=== PATIENT | female | born 1985 | race Caucasian/White ===

== ENCOUNTER 2017-12-11 10:36 | Outpatient (CLI) | payer MEDICAID, SELFPAY ==
[2017-12-11 11:51] LABS: Glucose,1 Hr (Glucola) 101 mg/dL (80-140)
== END 2017-12-11 10:56 ==
PROVIDERS: PCP Family Medicine; Visit Provider Obstetrics & Gynecology
DX: Z34.92 Encounter for supervision of normal pregnancy, unspecified, second trimester (principal)
CPT/HCPCS: 36415; 82950

== ENCOUNTER 2017-12-25 12:11 | Outpatient (CLI) | payer MEDICAID, SELFPAY ==
[2017-12-25 12:55] LABS: HCT 30.6 % (36.0-46.0); HGB 10.7 g/dL (12.0-15.5); Mean Corpuscular Hemoglobin 31.6 pg (27.0-33.0); Mean Corpuscular Volume 90.3 fL (80-95); Mean Platelet Volume 9.7 fL (8.0-11.0); Platelet Count 353 x1000/uL (130-400); RBC 3.39 m/cumm (4.00-5.20); RBC Distribution Width 13.2 % (11.7-14.6); White Blood Cell Count 16.26 k/cumm (4.4-10.8)
== END 2017-12-25 12:31 ==
PROVIDERS: PCP Family Medicine; Visit Provider Obstetrics & Gynecology
DX: Z34.82 Encounter for supervision of other normal pregnancy, second trimester (principal); R31.9 Hematuria, unspecified
CPT/HCPCS: 36415; 85027; 87086

== ENCOUNTER 2018-01-06 08:37 | Observation (INO) | payer MEDICAID, SELFPAY ==
[2018-01-06 09:22] LABS: ALT 20 U/L (12-78); AST 18 U/L (15-37); Albumin 2.2 g/dL (3.4-5.0); Alkaline Phosphatase 146 U/L (46-116); Anion Gap 9.7 mmol/L (3-11); BUN 5 mg/dL (7-18); Bilirubin, Total 0.3 mg/dL (0.2-1.0); CO2 22.3 mmol/L (21.0-32.0); CREATININE 0.46 mg/dL (0.55-1.02); Calcium 8.2 mg/dL (8.5-10.1); Chloride 105 mmol/L (98-107); Glucose 91 mg/dL (70-100); Potassium 3.6 mmol/L (3.5-5.1); Sodium 137 mmol/L (136-145); Total Protein 6.2 g/dL (6.4-8.2)
[2018-01-06] MEDS: guaiFENesin 600 MG TABCR PO (10:11)
[2018-01-06 10:26] LABS: Bilirubin Negative (Negative); Blood Negative (Negative); Clarity Clear; Glucose Negative (Negative); Ketones Trace mg/dL (Negative); Leukocyte Esterase Negative (Negative); Nitrite Negative (Negative); Specific Gravity 1.015 (1.005-1.025); Urobilinogen 0.2 EU/dL (Up TO 0.2); pH 7.5 (5-8)
== END 2018-01-06 10:45 | disposition home or self-care (01) ==
PROVIDERS: Admitting Provider Obstetrics & Gynecology Gynecology; PCP Family Medicine; Visit Provider Obstetrics & Gynecology Gynecology
DX: O26.893 Other specified pregnancy related conditions, third trimester (principal); R05 Cough; R11.10 Vomiting, unspecified; Z3A.31 31 weeks gestation of pregnancy
CPT/HCPCS: 36415; 80051; 80053; 81003; G0378

== ENCOUNTER 2018-01-13 17:10 | Emergency (ER) | payer MEDICAID, SELFPAY ==
[2018-01-13 17:18] VITALS: BP 128/75; PULSE 109; RESP 18; TEMP 37.1; O2SAT 98
--- NOTE | 2018-01-13 18:32 | W.ED.GENAD ---
Discharge Plan Disposition Patient Disposition: HOME Condition: Fair Discharge Details Chief Complaint: Nk/Back Pain Clinical Impression: Cough, Acute chest wall pain Primary Care Provider: Marlene Linton V ED Provider: Julienne Chavez Home Meds and New Rx's Prescriptions: New oxycodone 5 mg tablet 5 mg PO Q6H Qty: 7 RF: 0 Continue azithromycin [Zithromax Z-Ish] 250 mg tablet See Label Instructions PO .COMPLEX Qty: 6 RF: 0 cyclobenzaprine 5 mg tablet 5 mg PO TID PRN (Reason: muscle spasm) Qty: 30 RF: 0 PNV [id number] oil [ with DHA-Folic Acid] 1 EACH tablet,chewable 1 ea PO DAILY RF: 0 ranitidine HCl 300 MG tablet 300 mg PO DAILY Qty: 60 RF: 4 albuterol sulfate 90 mcg/actuation HFA aerosol inhaler 1 puff IH Q6H PRN (Reason: shortness of breath or wheezing) Qty: 8 RF: 0 guaifenesin [Mucinex] 1,200 mg tablet extended release 12hr 1,200 mg PO Q12H Qty: 20 RF: 1 No Action lidocaine 5 % adhesive patch,medicated 1 patch Transdermal DAILY Qty: 15 RF: 0 acetaminophen [Tylenol] 325 mg tablet 650 mg PO Q6H PRN (Reason: pain) Qty: 30 RF: 0 Discharge Instructions Instructions: Acute Cough (ED), Chest Wall Pain (ED) Additional Instructions: Encourage hydration. You may continue with Tylenol as needed for pain. Augment Tylenol with oxycodone as prescribed. Please take this medication only as prescribed. You may try splinting as discussed. Sleeping in a more upright position may also help with discomfort and cough. Please follow-up with Dr. Darling tomorrow as discussed. If you develop shortness of breath, difficulty breathing, increased pain or other new/worsening symptoms please seek care urgently once again. Referrals: Leticia Parkinson MD [ [facility] STAFF PHYSICIAN] - Discharge Data Discharge Date/Time-TO BE ENTERED AT DEPARTURE: 01/13/18 20:57 Medical Decision Making Patient 32-year-old female, 32 weeks gestation, chief complaint of cough and rib pain reports she has had cough times 2 weeks. States that initially she was having fevers, chills, congestion and sore throat. Reports that most of the upper respiratory symptoms have improved the cough has persisted. Patient was seen by her ECONOMIC DEVELOPER today who prescribed her azithromycin. While she was in the office, she reports she is having to do about coughing when she felt a pop in the posterior right side of her chest wall. Since that time she has been having severe pain particular with movement and inspiration. Reports the pain subsides and she not moving. States that she has shortness of breath associated cough he was not feeling short of breath and having difficulty breathing. States she has been having some posttussive emesis but otherwise no GI upset. She reports that she began having circumferential chest and abdominal pain a few days ago only with coughing which she thought was likely muscular based. However, his pain was manageable at home. States that her primary concern at this time this is acute onset of pain again, after her pop. Patient appears nontoxic on exam. When she is sitting, she appears quite comfortable. She does appear uncomfortable with movement or coughing. Pulse is 109. Temp is 37.1. Patient was oxygenating at 98%. Lungs are clear in all dixon. Plan obtain chest x-ray, laboratory evaluation. Consulted with Dr. Darling, ECONOMIC DEVELOPER. He reports that the patient appeared much more uncomfortable earlier today when in the office. He was concerned for possible PE. Patient is slightly tachycardic but not hypoxic. Calves are soft and nontender. Her history is most consistent with infection particularly as she began with a congestion right ear pain and sore throat as well as fevers. Seems to be more of a lingering cough that may be inflammatory face. However, given the sudden onset of more severe pain, we will obtain a chest x-ray. Will also obtain baseline labs. Patient was given morphine to help with discomfort and she has failed Flexeril that was prescribed by her OB as well as oral Tylenol. EKG significant for negative precordial T waves. Rate of 99 sinus rhythm. She reviewed by Dr. Marin who advised no acute ischemic changes noted Patient responded quite well to the IV morphine. Feeling much improved although still has severe discomfort with coughing Reviewed by radiologist no acute ab normalities noted Laboratory evaluation significant for elevated white count with elevated neutrophils. Discussed case with Dr. Marin as well as Dr. Darling. Reticular, 3 of us discussed risk associated with pulmonary embolism. Patient does not have any calf pain. Nursing shortness of breath difficulty breathing. She was noted to be tachycardic but this resolved once she is in a more comfortable position. Has not been hypoxic, saturating in the high 90s. No recent travel. Patient is a smoker. Second , patient is fairly low risk. However, unable to rule out pulmonary embolism without CT. Discussed with the patient and her at length. Dr. Darling, Dr. Marin and myself had a lengthy discussion discussing risk/benefits associated with imaging as well as risks associate with pulmonary embolism. Patient voiced understanding, after educated discussion she has decided she does not want to move forward with imaging at this time. Versus he had a azithromycin works. She does live locally and is able to seek care urgently if she develops new or worsening symptoms. Dr. Darling will be a touch the patient tomorrow morning to reassess. Splinting techniques. I did encourage deep breaths to help open up her lungs help prevent further infection. She will continue with azithromycin. Was given oral oxycodone which she responded well to. Patient will be sent home with oxycodone to help with the pain. We discussed with/benefits associated with narcotic use. Advised she keep this in a safe place. She signed narcotic form. She was given very strict return precautions. All of her questions and concerns were addressed, she is in agreement with this plan. HPI General Mode of arrival: ambulatory. Date/Time Provider Initiated Documentation: 01/13/18 17:48. Limitations to Documentation: no limitations. Information obtained by: patient and family. History of Present Illness 32 year old F presents to the emergency department with the chief complaint of right rib pain, cough, described as severe, with intensity rated at 10. Quality is described as stabbing and aching, and is localized to the chest, back and right. Patient reports no radiation. Patient started experiencing this hour(s) (severe right sided pain began with 'pop' a few hours ago) and it has been constant. Immobilization improves symptom(s), Movement worsens symptoms and Other factors that worsen symptoms (cough) . Patient notes no other symptoms., cough and shortness of breath (associates with not wanting to take a deep breath from pain on right side chest wall); denies fever/chills, headaches, nausea/vomiting (states that she can have nausea), rash, syncope and weakness. Patient did receive the following treatments prior to arrival, other (Tylenol, Flexeril) Related Data Home Medications Medication Instructions Recorded Confirmed PNV [id number] oil 1 ea PO DAILY tab.chew 08/29/17 01/13/18 [ with DHA-Folic Acid] ranitidine HCl 300 mg PO DAILY #60 tab-cap 18 01/13/18 albuterol sulfate HFA 90 1 puff IH Q6H PRN #8 gm 01/06/18 01/13/18 mcg/actuation aerosol inhaler guaifenesin ER 1,200 mg tablet, 1,200 mg PO Q12H #20 tab 01/06/18 01/13/18 extended release 12 hr azithromycin 250 mg tablet See Label Instructions PO .COMPLEX 01/13/18 01/13/18 #6 tab cyclobenzaprine 5 mg tablet 5 mg PO TID PRN #30 tab 01/13/18 01/13/18 oxycodone 5 mg PO Q6H #7 tab 01/13/18 acetaminophen [Tylenol] 650 mg PO Q6H PRN #30 tab 01/14/18 lidocaine 5 % topical patch 1 patch TRANSDERMAL DAILY #15 each 01/15/18 Previous Rx's Medication Instructions Recorded ranitidine HCl 300 mg PO DAILY #60 tab-cap 10/31/17 albuterol sulfate HFA 90 1 puff IH Q6H PRN #8 gm 01/06/18 mcg/actuation aerosol inhaler guaifenesin ER 1,200 mg tablet, 1,200 mg PO Q12H #20 tab 01/06/18 extended release 12 hr azithromycin 250 mg tablet See Label Instructions PO .COMPLEX 01/13/18 #6 tab cyclobenzaprine 5 mg tablet 5 mg PO TID PRN #30 tab 01/13/18 oxycodone 5 mg PO Q6H #7 tab 01/13/18 acetaminophen [Tylenol] 650 mg PO Q6H PRN #30 tab 01/14/18 lidocaine 5 % topical patch 1 patch TRANSDERMAL DAILY #15 each 01/15/18 Allergies Allergy/AdvReac Type Severity Reaction Status Date / Time No Known Drug Allergies Allergy Unverified 01/13/18 17:24 General Stated Complaint: Nk/Back Pain JETT: 3 Review of Systems Constitutional Denies chills, Reports fatigue, Denies fever(s), Denies headache(s) and Denies malaise ENT Denies dizziness and Denies headache(s) Cardiovascular Reports chest pain (right posterior chest wall pain with deep inspiration and coughing), Denies chest pain at rest, Denies syncope, Denies palpitations and Reports dyspnea Respiratory Reports chest congestion, Reports cough, Denies hemoptysis, Reports dyspnea, Denies stridor and Denies wheezing Gastrointestinal Denies abdominal pain, Denies nausea and Denies vomiting Genitourinary Reports as per HPI, Reports amenorrhea (patient is currently ) and Denies pelvic pain Musculoskeletal Reports as per HPI, Reports back pain (right side of chest wall ) and Denies numbness Integumentary/Breasts Denies rash and Denies skin pain Neurologic Denies dizziness, Denies syncope, Denies headache(s), Denies focal weakness and Denies numbness Endocrine Reports fatigue and Denies palpitations Allergic/Immunologic Denies wheezing Exam Const General: cooperative, healthy appearing, uncomfortable (patient is sitting very still, leaning toward the left. Holds the right side of her back with inspiration), no acute distress, well developed and well groomed Nutritional Appearance: average body habitus and well nourished Orientation: alert and awake [facility] Head: normal to inspection and normocephalic Ears: hearing grossly normal bilaterally, external ears normal and TM's normal bilaterally General nose exam: external nose normal and nares normal Mouth: oral mucosae normal, lip normal, tongue normal, oropharynx normal and moist mucous membranes Teeth and gingiva: dentition normal Throat: posterior oropharynx normal, tonsils normal and uvula midline Eyes General: appearance normal, both eyes and all related structures Neck Neck: normal visual inspection, no lymphadenopathy, no meningeal signs and trachea midline Chest Chest: abnormal inspection of the chest (no visible abnormalities, no palpable step off or crepitus. Patient is very point tender over the lateral posterior side of the right chest wall with focal tenderness elicited), no crepitus, localized rib tenderness with anteroposterior compression, no masses, tenderness and No rash Resp Effort & Inspection: normal respiratory effort, able to speak in complete sentences and cough Quality of cough: dry (appears very uncomfortable with cough) Auscultation: clear to auscultation bilaterally, no rales, no rhonchi and no wheezes Cardio Rate: regular rate Rhythm: regular rhythm Heart Sounds: S1 normal and S2 normal GI Inspection: normal to inspection (abdomenal exam consistent with gestational age) Palpation: no guarding, not rigid and nontender Back/Spine/Pelvis Back: No erythema, No warmth, No ecchymosis and back tenderness (as above) Cervical Spine: No cervical spinal tenderness Thoracic/Lumbar Spine: No paraspinal tenderness, No thoracic spinal tenderness and No lumbar spinal tenderness Skin General skin exam: no rashes or lesions noted Lesions: no lesions Rashes: no rashes Neuro General: alert and awake Cognition: normal cognition Speech: speech normal Gait: normal gait Extrem General: no pedal edema, no calf tenderness and normal gait Psych Appearance: grossly normal and well kempt Mental Status: mental status grossly normal Speech and Movement: speech and movement normal Course Vital Signs Temperature 37.1 C 01/13/18 17:18 Pulse 109 H 01/13/18 17:18 Respiratory Rate 18 01/13/18 17:18 Blood Pressure 128/75 01/13/18 17:18 Pulse Oximetry 98 01/13/18 17:18 Temperature 37.1 C 01/13/18 17:18 Temperature Source Skin 01/13/18 17:18 Pulse 109 H 01/13/18 17:18 Respiratory Rate 18 01/13/18 17:18 Respiratory Effort 01/13/18 17:25 Blood Pressure 128/75 01/13/18 17:18 Blood Pressure Position Sitting 01/13/18 17:18 Pulse Oximetry 98 01/13/18 17:18 Oxygen Delivery Method Room Air 01/13/18 17:18 Oxygen Flow Rate 0 01/13/18 17:18 Pain Level 10 01/13/18 17:18 Comment 01/13/18 17:18
--- NOTE | 2018-01-13 18:36 | DI.RAD_ITS ---
SYMPTOMS/DIAGNOSIS: COUGH X 2 WKS WITH POP AND PAIN RT SIDE PA AND LATERAL CHEST: Comparison 01/26/10. There is poor inspiration. The heart size and pulmonary vasculature are within normal limits. The lungs are free of infiltrates, effusions or pneumothoraces. The bones appear intact. IMPRESSION: No acute pulmonary process.
[2018-01-13] MEDS: MORPHine 10 MG/ML VIAL 2 MG IVP (18:42)
[2018-01-13 18:47] LABS: Abs Immature Grans 0.26 k/cumm (0.0-0.09); Absolute Basophil Count 0.06 k/cumm (0.0-0.2); Absolute Lymphocyte Count 1.87 k/cumm (1.2-3.4); Absolute Monocyte Count 1.36 k/cumm (0.11-0.7); Absolute Neutrophil Count 15.11 k/cumm (1.2-6.7); Basophils % 0.3; HGB 10.5 g/dL (12.0-15.5); Immature Grans % 1.4; Mean Corp. HGB Concentration 33.9 g/dL (32.0-36.0); Mean Corpuscular Hemoglobin 30.4 pg (27.0-33.0); Mean Corpuscular Volume 89.9 fL (80-95); Monocytes % 7.3; Platelet Count 485 x1000/uL (130-400); RBC 3.45 m/cumm (4.00-5.20); White Blood Cell Count 18.66 k/cumm (4.4-10.8)
[2018-01-13 19:01] LABS: ALT 20 U/L (12-78); AST 17 U/L (15-37); Albumin 2.1 g/dL (3.4-5.0); Alkaline Phosphatase 182 U/L (46-116); Anion Gap 9.5 mmol/L (3-11); BUN 7 mg/dL (7-18); Bilirubin, Total 0.3 mg/dL (0.2-1.0); CO2 23.5 mmol/L (21.0-32.0); Chloride 103 mmol/L (98-107); Glucose 106 mg/dL (70-100); Potassium 3.4 mmol/L (3.5-5.1); Sodium 136 mmol/L (136-145); Total Protein 6.5 g/dL (6.4-8.2)
--- NOTE | 2018-01-13 19:08 | ED.GENADUL_ITS ---
Discharge Plan Disposition Patient Disposition: HOME Condition: Fair Discharge Details Chief Complaint: Nk/Back Pain Clinical Impression: Cough, Acute chest wall pain Primary Care Provider: Marlene Linton V ED Provider: Julienne Chavez Home Meds and New Rx's Prescriptions: New oxycodone 5 mg tablet 5 mg PO Q6H Qty: 7 RF: 0 Continue azithromycin [Zithromax Z-Ish] 250 mg tablet See Label Instructions PO .COMPLEX Qty: 6 RF: 0 cyclobenzaprine 5 mg tablet 5 mg PO TID PRN (Reason: muscle spasm) Qty: 30 RF: 0 PNV [id number] oil [ with DHA-Folic Acid] 1 EACH tablet, chewable 1 ea PO DAILY RF: 0 ranitidine HCl 300 MG tablet 300 mg PO DAILY Qty: 60 RF: 4 albuterol sulfate 90 mcg/actuation HFA aerosol inhaler 1 puff IH Q6H PRN (Reason: shortness of breath or wheezing) Qty: 8 RF: 0 guaifenesin [Mucinex] 1,200 mg tablet extended release 12hr 1,200 mg PO Q12H Qty: 20 RF: 1 No Action lidocaine 5 % adhesive patch,medicated 1 patch Transdermal DAILY Qty: 15 RF: 0 acetaminophen [Tylenol] 325 mg tablet 650 mg PO Q6H PRN (Reason: pain) Qty: 30 RF: 0 Discharge Instructions Instructions: Acute Cough (ED), Chest Wall Pain (ED) Additional Instructions: Encourage hydration. You may continue with Tylenol as needed for pain. Augment Tylenol with oxycodone as prescribed. Please take this medication only as prescribed. You may try splinting as discussed. Sleeping in a more upright position may also help with discomfort and cough. Please follow-up with Dr. Darling tomorrow as discussed. If you develop shortness of breath, difficulty breathing, increased pain or other new/worsening symptoms please seek care urgently once again. Referrals: Leticia Parkinson MD [ [facility] STAFF PHYSICIAN] - Discharge Data Discharge Date/Time-TO BE ENTERED AT DEPARTURE: 01/13/18 20:57 Medical Decision Making Patient 32-year-old female, 32 weeks gestation, chief complaint of cough and rib pain reports she has had cough times 2 weeks. States that initially she was having fevers, chills, congestion and sore throat. Reports that most of the upper respiratory symptoms have improved the cough has persisted. Patient was seen by her SECOND TIME WORKER today who prescribed her azithromycin. While she was in the office, she reports she is having to do about coughing when she felt a pop in the posterior right side of her chest wall. Since that time she has been having severe pain particular with movement and inspiration. Reports the pain subsides and she not moving. States that she has shortness of breath associated cough he was not feeling short of breath and having difficulty breathing. States she has been having some posttussive emesis but otherwise no GI upset. She reports that she began having circumferential chest and abdominal pain a few days ago only with coughing which she thought was likely muscular based. However, his pain was manageable at home. States that her primary concern at this time this is acute onset of pain again, after her pop . Patient appears nontoxic on exam. When she is sitting, she appears quite comfortable. She does appear uncomfortable with movement or coughing. Pulse is 109. Temp is 37.1. Patient was oxygenating at 98%. Lungs are clear in all dixon. Plan obtain chest x-ray, laboratory evaluation. Consulted with Dr. Darling, SECOND TIME WORKER. He reports that the patient appeared much more uncomfortable earlier today when in the office. He was concerned for possible PE. Patient is slightly tachycardic but not hypoxic. Calves are soft and nontender. Her history is most consistent with infection particularly as she began with a congestion right ear pain and sore throat as well as fevers. Seems to be more of a lingering cough that may be inflammatory face. However, given the sudden onset of more severe pain, we will obtain a chest x-ray. Will also obtain baseline labs. Patient was given morphine to help with discomfort and she has failed Flexeril that was prescribed by her OB as well as oral Tylenol. EKG significant for negative precordial T waves. Rate of 99 sinus rhythm. She reviewed by Dr. Marin who advised no acute ischemic changes noted Patient responded quite well to the IV morphine. Feeling much improved although still has severe discomfort with coughing Reviewed by radiologist no acute ab normalities noted Laboratory evaluation significant for elevated white count with elevated neutrophils. Discussed case with Dr. Marin as well as Dr. Darling. Reticular, 3 of us discussed risk associated with pulmonary embolism. Patient does not have any calf pain. Nursing shortness of breath difficulty breathing. She was noted to be tachycardic but this resolved once she is in a more comfortable position. Has not been hypoxic, saturating in the high 90s. No recent travel. Patient is a smoker. Second , patient is fairly low risk. However, unable to rule out pulmonary embolism without CT. Discussed with the patient and her at length. Dr. Darling, Dr. Marin and myself had a lengthy discussion discussing risk/benefits associated with imaging as well as risks associate with pulmonary embolism. Patient voiced understanding, after educated discussion she has decided she does not want to move forward with imaging at this time. Versus he had a azithromycin works. She does live locally and is able to seek care urgently if she develops new or worsening symptoms. Dr. Darling will be a touch the patient tomorrow morning to reassess. Splinting techniques. I did encourage deep breaths to help open up her lungs help prevent further infection. She will continue with azithromycin. Was given oral oxycodone which she responded well to. Patient will be sent home with oxycodone to help with the pain. We discussed with/benefits associated with narcotic use. Advised she keep this in a safe place. She signed narcotic form. She was given very strict return precautions. All of her questions and concerns were addressed, she is in agreement with this plan. HPI General Mode of arrival: ambulatory . Date/Time Provider Initiated Documentation: 01/13/18 17:48 . Limitations to Documentation: no limitations . Information obtained by: patient and family . History of Present Illness 32 year old F presents to the emergency department with the chief complaint of right rib pain, cough, described as severe, with intensity rated at 10. Quality is described as stabbing and aching, and is localized to the chest, back and right. Patient reports no radiation. Patient started experiencing this hour(s) (severe right sided pain began with 'pop' a few hours ago) and it has been constant. Immobilization improves symptom(s), Movement worsens symptoms and Other factors that worsen symptoms (cough) . Patient notes no other symptoms., cough and shortness of breath (associates with not wanting to take a deep breath from pain on right side chest wall); denies fever/chills, headaches, nausea/vomiting (states that she can have nausea), rash, syncope and weakness. Patient did receive the following treatments prior to arrival, other (Tylenol, Flexeril) Related Data Home Medications Medication Instructions Recorded Confirmed PNV [id number] oil 1 ea PO DAILY tab.chew 08/29/17 01/13/18 [ with DHA-Folic Acid] ranitidine HCl 300 mg PO DAILY #60 tab-cap 18 01/13/18 albuterol sulfate HFA 90 1 puff IH Q6H PRN #8 gm 01/06/18 01/13/18 mcg/actuation aerosol inhaler guaifenesin ER 1,200 mg tablet, 1,200 mg PO Q12H #20 tab 01/06/18 01/13/18 extended release 12 hr azithromycin 250 mg tablet See Label Instructions PO .COMPLEX 01/13/18 01/13/18 #6 tab cyclobenzaprine 5 mg tablet 5 mg PO TID PRN #30 tab 01/13/18 01/13/18 oxycodone 5 mg PO Q6H #7 tab 01/13/18 acetaminophen [Tylenol] 650 mg PO Q6H PRN #30 tab 01/14/18 lidocaine 5 % topical patch 1 patch TRANSDERMAL DAILY #15 each 01/15/18 Previous Rx's Medication Instructions Recorded ranitidine HCl 300 mg PO DAILY #60 tab-cap 10/31/17 albuterol sulfate HFA 90 1 puff IH Q6H PRN #8 gm 01/06/18 mcg/actuation aerosol inhaler guaifenesin ER 1,200 mg tablet, 1,200 mg PO Q12H #20 tab 01/06/18 extended release 12 hr azithromycin 250 mg tablet See Label Instructions PO .COMPLEX 01/13/18 #6 tab cyclobenzaprine 5 mg tablet 5 mg PO TID PRN #30 tab 01/13/18 oxycodone 5 mg PO Q6H #7 tab 01/13/18 acetaminophen [Tylenol] 650 mg PO Q6H PRN #30 tab 01/14/18 lidocaine 5 % topical patch 1 patch TRANSDERMAL DAILY #15 each 01/15/18 Allergies Allergy/AdvReac Type Severity Reaction Status Date / Time No Known Drug Allergies Allergy Unverified 01/13/18 17:24 General Stated Complaint: Nk/Back Pain JETT: 3 Review of Systems Constitutional Denies chills, Reports fatigue, Denies fever(s), Denies headache(s) and Denies malaise ENT Denies dizziness and Denies headache(s) Cardiovascular Reports chest pain (right posterior chest wall pain with deep inspiration and coughing), Denies chest pain at rest, Denies syncope, Denies palpitations and Reports dyspnea Respiratory Reports chest congestion, Reports cough, Denies hemoptysis, Reports dyspnea, Denies stridor and Denies wheezing Gastrointestinal Denies abdominal pain, Denies nausea and Denies vomiting Genitourinary Reports as per HPI, Reports amenorrhea (patient is currently ) and Denies pelvic pain Musculoskeletal Reports as per HPI, Reports back pain (right side of chest wall ) and Denies numbness Integumentary/Breasts Denies rash and Denies skin pain Neurologic Denies dizziness, Denies syncope, Denies headache(s), Denies focal weakness and Denies numbness Endocrine Reports fatigue and Denies palpitations Allergic/Immunologic Denies wheezing Exam Const General: cooperative, healthy appearing, uncomfortable (patient is sitting very still, leaning toward the left. Holds the right side of her back with inspiration), no acute distress, well developed and well groomed Nutritional Appearance: average body habitus and well nourished Orientation: alert and awake [facility] Head: normal to inspection and normocephalic Ears: hearing grossly normal bilaterally, external ears normal and TM's normal bilaterally General nose exam: external nose normal and nares normal Mouth: oral mucosae normal, lip normal, tongue normal, oropharynx normal and moist mucous membranes Teeth and gingiva: dentition normal Throat: posterior oropharynx normal, tonsils normal and uvula midline Eyes General: appearance normal, both eyes and all related structures Neck Neck: normal visual inspection, no lymphadenopathy, no meningeal signs and trachea midline Chest Chest: abnormal inspection of the chest (no visible abnormalities, no palpable step off or crepitus. Patient is very point tender over the lateral posterior side of the right chest wall with focal tenderness elicited), no crepitus, localized rib tenderness with anteroposterior compression, no masses, tenderness and No rash Resp Effort & Inspection: normal respiratory effort, able to speak in complete sentences and cough Quality of cough: dry (appears very uncomfortable with cough ) Auscultation: clear to auscultation bilaterally, no rales, no rhonchi and no wheezes Cardio Rate: regular rate Rhythm: regular rhythm Heart Sounds: S1 normal and S2 normal GI Inspection: normal to inspection (abdomenal exam consistent with gestational age ) Palpation: no guarding, not rigid and nontender Back/Spine/Pelvis Back: No erythema, No warmth, No ecchymosis and back tenderness (as above) Cervical Spine: No cervical spinal tenderness Thoracic/Lumbar Spine: No paraspinal tenderness, No thoracic spinal tenderness and No lumbar spinal tenderness Skin General skin exam: no rashes or lesions noted Lesions: no lesions Rashes: no rashes Neuro General: alert and awake Cognition: normal cognition Speech: speech normal Gait: normal gait Extrem General: no pedal edema, no calf tenderness and normal gait Psych Appearance: grossly normal and well kempt Mental Status: mental status grossly normal Speech and Movement: speech and movement normal Course Vital Signs Temperature 37.1 C 01/13/18 17:18 Pulse 109 H 01/13/18 17:18 Respiratory Rate 18 01/13/18 17:18 Blood Pressure 128/75 01/13/18 17:18 Pulse Oximetry 98 01/13/18 17:18 Temperature 37.1 C 01/13/18 17:18 Temperature Source Skin 01/13/18 17:18 Pulse 109 H 01/13/18 17:18 Respiratory Rate 18 01/13/18 17:18 Respiratory Effort 01/13/18 17:25 Blood Pressure 128/75 01/13/18 17:18 Blood Pressure Position Sitting 01/13/18 17:18 Pulse Oximetry 98 01/13/18 17:18 Oxygen Delivery Method Room Air 01/13/18 17:18 Oxygen Flow Rate 0 01/13/18 17:18 Pain Level 10 01/13/18 17:18 Comment 01/13/18 17:18
[2018-01-13 20:02] VITALS: BP 118/64; PULSE 96; RESP 18; TEMP 37; O2SAT 97
[2018-01-13] MEDS: oxyCODONE 5 MG TAB PO (20:02)
--- NOTE | 2018-01-13 20:03 | W.OBCONSULT ---
Date of service: 01/13/18 Assessment and Plan (1) Upper respiratory infection: Current visit: No Status: Acute (2) : Current visit: No Status: Acute Upper respiratory infection with musculoskeletal pain related to cough. She does have a significant leukocytosis. CXR/EKG were normal. I discussed other clinical considerations such as PE with the patient. The clinical suspicion is low but should her symptoms worsen I would consider CTA of the chest. The patient is agreeable to this. I would recommend discharging the patient with a short course of oxycodone which she is advised to utilize judiciously. I will plan to follow up with her in the morning. She is advised to return promptly for worsening symptoms. History of Present Illness Narrative: 32 year old presents to the emergency department with cough x 2 weeks with musculoskeletal pain involving her ribs, abdomen and back. The patient reports a productive cough for the last two weeks and I did see her in the clinic earlier today and started her on azithromycin. Her pain intensified following her clinic visit to the point that it was debilitating. I advised her to present to the emergency department for evaluation. Review of Systems Review of Systems All systems reviewed & are unremarkable except as noted in HPI and below Respiratory Reports as per HPI Musculoskeletal Reports as per HPI Exam Const General: cooperative, healthy appearing and well developed Resp Auscultation: clear to auscultation bilaterally Cardio Rate: regular rate Rhythm: regular rhythm Back/Spine/Pelvis Other: Tenderness to palpation along her lower ribs bilaterally extending to her back. Results Labs : 01/13/18 18:04 01/13/18 18:04 Laboratory Results - last 24 hr 01/13/18 01/13/18 18:04 18:04 WBC 18.66 H RBC 3.45 L Hgb 10.5 L Hct 31.0 L MCV 89.9 MCH 30.4 MCHC 33.9 RDW 13.0 Plt Count 485 H MPV 9.0 Immature Gran % 1.4 Neutrophils % 81.0 Lymphocytes % 10.0 Monocytes % 7.3 Eosinophils % 0.0 Basophils % 0.3 Absolute Neutrophils 15.11 H Absolute Lymphocytes 1.87 Absolute Monocytes 1.36 H Absolute Eosinophils 0.00 Absolute Basophils 0.06 Sodium 136 Potassium 3.4 L Chloride 103 Carbon Dioxide 23.5 Anion Gap 9.5 BUN 7 Creatinine 0.60 Estimated GFR/1.73 m2 >= 60.00 Glucose 106 H Calcium 9.0 Total Bilirubin 0.3 AST 17 ALT 20 Alkaline Phosphatase 182 H Total Protein 6.5 Albumin 2.1 L
--- NOTE | 2018-01-13 20:05 | DI.VRAD_ITS ---
EXAM: XR Chest, 2 Views EXAM DATE/TIME: 01/13/2018 6:37 PM CLINICAL HISTORY: 32 years old, female; Signs and symptoms; Cough; Patient HX: X2 weeks with pop and pain on right side; Additional info: PT is 32 weeks TECHNIQUE: XR of the chest, 2 views. COMPARISON: No relevant prior studies available. FINDINGS: Lungs: Unremarkable. No consolidation. Pleural space: Unremarkable. No pleural effusion. No pneumothorax. Heart/Mediastinum: Unremarkable. No cardiomegaly. Bones/joints: Unremarkable for patient's age. IMPRESSION: No acute findings. Dictated and Authenticated by: Bernabe Styles MD. Ordering:VIVIANE MALONE MD
[2018-01-13] MEDS: oxyCODONE 5 MG TAB 15 MG PO (20:56)
[2018-01-13 20:57] VITALS: BP 118/64; PULSE 96; RESP 18; TEMP 37; O2SAT 97
== END 2018-01-13 20:57 | disposition home or self-care (01) ==
PROVIDERS: Emergency Provider Physician Assistant; PCP Family Medicine
DX: O99.513 Diseases of the respiratory system complicating pregnancy, third trimester (principal); J06.9 Acute upper respiratory infection, unspecified; Z3A.32 32 weeks gestation of pregnancy; R07.81 Pleurodynia; O99.333 Smoking (tobacco) complicating pregnancy, third trimester; F17.210 Nicotine dependence, cigarettes, uncomplicated
CPT/HCPCS: 36415; 80053; 93005; 96374; 99253; 99285; 71046; 85025; 93010; J2270

== ENCOUNTER 2018-01-14 16:43 | Emergency (ER) | payer MEDICAID, SELFPAY ==
[2018-01-14 16:25] VITALS: BP 107/89; PULSE 117; RESP 22; TEMP 36.9; O2SAT 98
--- NOTE | 2018-01-14 16:36 | DI.RAD_ITS ---
SYMPTOMS/DIAGNOSIS: CHEST PAIN CHEST X-RAY, FRONTAL AND LATERAL VIEWS: Comparison is 01/13/18. The heart size and pulmonary vasculature are stable and within normal limits. No consolidating infiltrates are seen. There is a question of increased lung markings in the right base. A developing pneumonia cannot be excluded. No effusions or pneumothoraces are identified. The bones are intact. IMPRESSION: Question of a developing right lower lobe infiltrate. Followup as clinically appropriate.
--- NOTE | 2018-01-14 16:38 | W.ED.GENAD ---
Discharge Plan Disposition Patient Disposition: HOME Discharge Details Chief Complaint: Nk/Back Pain Clinical Impression: Pneumonia, Closed rib fracture Reason For Visit: MAHAMED Primary Care Provider: Marlene Linton V ED Provider: Mj Lorenzana Home Meds and New Rx's Prescriptions: New acetaminophen [Tylenol] 325 mg tablet 650 mg PO Q6H PRN (Reason: pain) Qty: 30 RF: 0 Continue cyclobenzaprine 5 mg tablet 5 mg PO TID PRN (Reason: muscle spasm) Qty: 30 RF: 0 PNV [id number]-[id number]-3-fish oil [ with DHA-Folic Acid] 1 EACH tablet,chewable 1 ea PO DAILY RF: 0 ranitidine HCl 300 MG tablet 300 mg PO DAILY Qty: 60 RF: 4 albuterol sulfate 90 mcg/actuation HFA aerosol inhaler 1 puff IH Q6H PRN (Reason: shortness of breath or wheezing) Qty: 8 RF: 0 No Action lidocaine 5 % adhesive patch,medicated 1 patch Transdermal DAILY Qty: 15 RF: 0 Discharge Instructions Instructions: Rib Fracture (ED), Pneumonia (ED) Additional Instructions: Please take antibiotic as prescribed. Use Tylenol and lidocaine patch as prescribed. Please follow-up with your rough rounder tomorrow. Return to the ER if you have any worsening or new concerning symptoms. Referrals: Leticia Parkinson MD [ [facility] STAFF PHYSICIAN] - Discharge Data Discharge Date/Time-TO BE ENTERED AT DEPARTURE: 01/14/18 19:10 Medical Decision Making 16:45 --32-year-old at 32 weeks, here with right posterior lateral rib pain that is severe, spasmodic and pleuritic after coughing spell yesterday when she experienced a popping sensation. Patient is uncomfortable appearing. She is tachycardic secondary to discomfort. Tender to palpation along her lateral right rib. I suspect she has a rib fracture She did have a chest x-ray yesterday that was negative but limited. Will repeat cxr to assess for pneumothorax. Plan is to treat her pain with lidocaine patch as well as Tylenol. 18:45 --chest x-ray interpreted by radiology few scattered small opacities in right lower lobe which may represent developing infiltrates. no ptx. Patient reassessed and notes significant improvement with lidocaine patch and Tylenol. Requesting discharge. Patient informed of x-ray results. Patient was encouraged to call her rough rounder tomorrow in follow-up. I advised her to return immediately should she have any worsening or new concerning symptoms. Spoke with OB electrical subcontractor Dr. Aponte - patient to be seen in follow-up. HPI General Mode of arrival: EMS. Date/Time Provider Initiated Documentation: 01/14/18 17:38. Limitations to Documentation: no limitations. Information obtained by: patient. HPI Narrative: 32-year-old at 32 weeks presents with chief complaint of chest pain. Patient specifically notes pain in her right posterior lateral mid ribs that started yesterday around noon with a coughing spell. Patient notes that she has had a cough for the past 2 weeks. She is being treated with azithromycin. When she coughed yesterday around noon, she experienced a poppingsensation in her right lateral ribs. She was seen here yesterday in the emergency department, given morphine, had a chest x-ray that was limited due to poor inspiration but otherwise negative and was feeling better, and was discharged home. Last night pain returned and has persisted today. She took oxycodone which did not help her pain. Pain is now severe, worse with certain positions and with coughing. Pain feels like a spasm, sharp pain. Related Data Home Medications Medication Instructions Recorded Confirmed PNV [id number] oil 1 ea PO DAILY tab.chew 08/29/17 01/31/18 [ with DHA-Folic Acid] ranitidine HCl 300 mg PO DAILY #60 tab-cap 10/31/17 01/31/18 albuterol sulfate HFA 90 1 puff IH Q6H PRN #8 gm 01/06/18 01/31/18 mcg/actuation aerosol inhaler cyclobenzaprine 5 mg tablet 5 mg PO TID PRN #30 tab 01/13/18 01/31/18 acetaminophen [Tylenol] 650 mg PO Q6H PRN #30 tab 01/14/18 01/31/18 lidocaine 5 % topical patch 1 patch TRANSDERMAL DAILY #15 each 01/15/18 01/31/18 Previous Rx's Medication Instructions Recorded ranitidine HCl 300 mg PO DAILY #60 tab-cap 10/31/17 albuterol sulfate HFA 90 1 puff IH Q6H PRN #8 gm 01/06/18 mcg/actuation aerosol inhaler cyclobenzaprine 5 mg tablet 5 mg PO TID PRN #30 tab 01/13/18 acetaminophen [Tylenol] 650 mg PO Q6H PRN #30 tab 01/14/18 lidocaine 5 % topical patch 1 patch TRANSDERMAL DAILY #15 each 01/15/18 Allergies Allergy/AdvReac Type Severity Reaction Status Date / Time No Known Drug Allergies Allergy Unverified 01/31/18 14:49 General Stated Complaint: Nk/Back Pain JETT: 3 Review of Systems Review of Systems All systems reviewed & are unremarkable except as noted in HPI and below Cardiovascular Reports dyspnea Respiratory Reports cough, Reports pain on inspiration and Reports dyspnea Gastrointestinal Denies abdominal pain PFSH Family History Mother Diabetes Alcohol abuse Breast cancer Bipolar 1 disorder Father Alcohol abuse Heart disease COPD (chronic obstructive pulmonary disease) Medical History Anxiety (Chronic) Depression (Chronic) Social History adopted: No foster care: No number of children: 2 current occupational status: employed current occupation: [employer] pets and animals: Yes (2 dogs) Smoking/Tobacco Use Status: Current every day alcohol intake: never seatbelt use: always helmet use: Yes drive intox or ride w/ intox tank driver: No water heater temp set < 120 deg: No (enc. to check) working smoke detector in home: Yes fire extinguisher in home: Yes carbon monox detector in home: Yes firearms in home: No victim of physical abuse: No victim of emotional abuse: No victim of sexual abuse: No Surgical History H/O breast biopsy (Acute) Excision, Pilonidal Cyst Exam Const General: cooperative and in distress (in pain) HENMT Head: normocephalic and atraumatic Mouth: moist mucous membranes Eyes Conjunctivae: normal conjunctivae Sclera: normal sclerae EOM: EOM intact bilaterally Neck Neck: trachea midline and supple Resp Auscultation: diminished lung sounds bilaterally (decreased effort) Cardio Jugular venous pressure: no JVD Rate: regular rate and not tachycardic Rhythm: regular rhythm GI Inspection: other (gravid abd) Palpation: soft, not rigid and nontender Skin General skin exam: no rashes or lesions noted Neuro General: alert, awake, oriented x3 and tone normal Extrem General: no edema Psych Appearance: grossly normal Mental Status: mental status grossly normal Speech and Movement: speech and movement normal Course Vital Signs Temperature 36.9 C 01/14/18 16:25 Pulse 117 H 01/14/18 16:25 Respiratory Rate 22 01/14/18 16:25 Blood Pressure 107/89 01/14/18 16:25 Pulse Oximetry 98 01/14/18 16:25 Temperature 36.9 C 01/14/18 16:25 Temperature Source Skin 01/14/18 16:25 Pulse 117 H 01/14/18 16:25 Respiratory Rate 22 01/14/18 16:25 Blood Pressure 107/89 01/14/18 16:25 Blood Pressure Position Sitting 01/14/18 16:25 Pulse Oximetry 98 01/14/18 16:25 Oxygen Delivery Method Room Air 01/14/18 16:25 Oxygen Flow Rate 0 01/14/18 16:25 Pain Level 10 01/14/18 16:25
--- NOTE | 2018-01-14 16:47 | ED.GENADUL_ITS ---
Discharge Plan Disposition Patient Disposition: HOME Discharge Details Chief Complaint: Nk/Back Pain Clinical Impression: Pneumonia, Closed rib fracture Reason For Visit: MAHAMED Primary Care Provider: Marlene Linton V ED Provider: Mj Lorenzana Home Meds and New Rx's Prescriptions: New acetaminophen [Tylenol] 325 mg tablet 650 mg PO Q6H PRN (Reason: pain) Qty: 30 RF: 0 Continue cyclobenzaprine 5 mg tablet 5 mg PO TID PRN (Reason: muscle spasm) Qty: 30 RF: 0 PNV 590-bqzkh-lnlsr-3-fish oil [ with DHA-Folic Acid] 1 EACH tablet, chewable 1 ea PO DAILY RF: 0 ranitidine HCl 300 MG tablet 300 mg PO DAILY Qty: 60 RF: 4 albuterol sulfate 90 mcg/actuation HFA aerosol inhaler 1 puff IH Q6H PRN (Reason: shortness of breath or wheezing) Qty: 8 RF: 0 No Action lidocaine 5 % adhesive patch,medicated 1 patch Transdermal DAILY Qty: 15 RF: 0 Discharge Instructions Instructions: Rib Fracture (ED), Pneumonia (ED) Additional Instructions: Please take antibiotic as prescribed. Use Tylenol and lidocaine patch as prescribed. Please follow-up with your instructional designer tomorrow. Return to the ER if you have any worsening or new concerning symptoms. Referrals: Leticia Parkinson MD [ [facility] STAFF PHYSICIAN] - Discharge Data Discharge Date/Time-TO BE ENTERED AT DEPARTURE: 01/14/18 19:10 Medical Decision Making 16:45 --32-year-old at 32 weeks, here with right posterior lateral rib pain that is severe, spasmodic and pleuritic after coughing spell yesterday when she experienced a popping sensation. Patient is uncomfortable appearing. She is tachycardic secondary to discomfort. Tender to palpation along her lateral right rib. I suspect she has a rib fracture She did have a chest x-ray yesterday that was negative but limited. Will repeat cxr to assess for pneumothorax. Plan is to treat her pain with lidocaine patch as well as Tylenol. 18:45 --chest x-ray interpreted by radiology few scattered small opacities in right lower lobe which may represent developing infiltrates. no ptx. Patient reassessed and notes significant improvement with lidocaine patch and Tylenol. Requesting discharge. Patient informed of x-ray results. Patient was encouraged to call her instructional designer tomorrow in follow-up. I advised her to return immediately should she have any worsening or new concerning symptoms. Spoke with OB tar and ammonia pump operator Dr. Aponte - patient to be seen in follow-up. HPI General Mode of arrival: EMS . Date/Time Provider Initiated Documentation: 01/14/18 17:38 . Limitations to Documentation: no limitations . Information obtained by: patient . HPI Narrative: 32-year-old at 32 weeks presents with chief complaint of chest pain. Patient specifically notes pain in her right posterior lateral mid ribs that started yesterday around noon with a coughing spell. Patient notes that she has had a cough for the past 2 weeks. She is being treated with azithromycin. When she coughed yesterday around noon, she experienced a poppingsensation in her right lateral ribs. She was seen here yesterday in the emergency department, given morphine, had a chest x-ray that was limited due to poor inspiration but otherwise negative and was feeling better, and was discharged home. Last night pain returned and has persisted today. She took oxycodone which did not help her pain. Pain is now severe, worse with certain positions and with coughing. Pain feels like a spasm, sharp pain. Related Data Home Medications Medication Instructions Recorded Confirmed PNV [id number]-[id number]-[id number]-3-fish oil 1 ea PO DAILY tab.chew 08/29/17 01/31/18 [ with DHA-Folic Acid] ranitidine HCl 300 mg PO DAILY #60 tab-cap 10/31/17 01/31/18 albuterol sulfate HFA 90 1 puff IH Q6H PRN #8 gm 01/06/18 01/31/18 mcg/actuation aerosol inhaler cyclobenzaprine 5 mg tablet 5 mg PO TID PRN #30 tab 01/13/18 01/31/18 acetaminophen [Tylenol] 650 mg PO Q6H PRN #30 tab 01/14/18 01/31/18 lidocaine 5 % topical patch 1 patch TRANSDERMAL DAILY #15 each 01/15/18 01/31/18 Previous Rx's Medication Instructions Recorded ranitidine HCl 300 mg PO DAILY #60 tab-cap 10/31/17 albuterol sulfate HFA 90 1 puff IH Q6H PRN #8 gm 01/06/18 mcg/actuation aerosol inhaler cyclobenzaprine 5 mg tablet 5 mg PO TID PRN #30 tab 01/13/18 acetaminophen [Tylenol] 650 mg PO Q6H PRN #30 tab 01/14/18 lidocaine 5 % topical patch 1 patch TRANSDERMAL DAILY #15 each 01/15/18 Allergies Allergy/AdvReac Type Severity Reaction Status Date / Time No Known Drug Allergies Allergy Unverified 01/31/18 14:49 General Stated Complaint: Nk/Back Pain JETT: 3 Review of Systems Review of Systems All systems reviewed & are unremarkable except as noted in HPI and below Cardiovascular Reports dyspnea Respiratory Reports cough, Reports pain on inspiration and Reports dyspnea Gastrointestinal Denies abdominal pain PFSH Family History Mother Diabetes Alcohol abuse Breast cancer Bipolar 1 disorder Father Alcohol abuse Heart disease COPD (chronic obstructive pulmonary disease) Medical History Anxiety (Chronic) Depression (Chronic) Social History adopted: No foster care: No number of children: 2 current occupational status: employed current occupation: [employer] pets and animals: Yes (2 dogs) Smoking/Tobacco Use Status: Current every day alcohol intake: never seatbelt use: always helmet use: Yes drive intox or ride w/ intox otr truck driver: No water heater temp set < 120 deg: No (enc. to check) working smoke detector in home: Yes fire extinguisher in home: Yes carbon monox detector in home: Yes firearms in home: No victim of physical abuse: No victim of emotional abuse: No victim of sexual abuse: No Surgical History H/O breast biopsy (Acute) Excision, Pilonidal Cyst Exam Const General: cooperative and in distress (in pain) HENMT Head: normocephalic and atraumatic Mouth: moist mucous membranes Eyes Conjunctivae: normal conjunctivae Sclera: normal sclerae EOM: EOM intact bilaterally Neck Neck: trachea midline and supple Resp Auscultation: diminished lung sounds bilaterally (decreased effort) Cardio Jugular venous pressure: no JVD Rate: regular rate and not tachycardic Rhythm: regular rhythm GI Inspection: other (gravid abd) Palpation: soft, not rigid and nontender Skin General skin exam: no rashes or lesions noted Neuro General: alert, awake, oriented x3 and tone normal Extrem General: no edema Psych Appearance: grossly normal Mental Status: mental status grossly normal Speech and Movement: speech and movement normal Course Vital Signs Temperature 36.9 C 01/14/18 16:25 Pulse 117 H 01/14/18 16:25 Respiratory Rate 22 01/14/18 16:25 Blood Pressure 107/89 01/14/18 16:25 Pulse Oximetry 98 01/14/18 16:25 Temperature 36.9 C 01/14/18 16:25 Temperature Source Skin 01/14/18 16:25 Pulse 117 H 01/14/18 16:25 Respiratory Rate 22 01/14/18 16:25 Blood Pressure 107/89 01/14/18 16:25 Blood Pressure Position Sitting 01/14/18 16:25 Pulse Oximetry 98 01/14/18 16:25 Oxygen Delivery Method Room Air 01/14/18 16:25 Oxygen Flow Rate 0 01/14/18 16:25 Pain Level 10 01/14/18 16:25
[2018-01-14] MEDS: Acetaminophen 325 MG TAB 650 MG PO (16:55)
[2018-01-14] MEDS: Lidocaine 5% Patch 1 PATCH (17:02)
--- NOTE | 2018-01-14 18:01 | DI.VRAD_ITS ---
EXAM: XR Chest, 2 Views EXAM DATE/TIME: 01/14/2018 4:38 PM CLINICAL HISTORY: 32 years old, female; Signs and symptoms; Other: Chest pain TECHNIQUE: XR of the chest, 2 views. COMPARISON: CR XR CHEST 2V PA LATERAL 01/13/2018 6:52 PM FINDINGS: Lungs: There are scattered small opacification in the right lower lobe, possible developing infiltrate. Pleural space: No pneumothorax. Heart/Mediastinum: Unremarkable. No cardiomegaly. Bones/joints: Degenerative changes of the spine. IMPRESSION: Few scattered small opacities in the right lower lobe which may represent developing infiltrates. Dictated and Authenticated by: Nima Holt MD. Ordering:ROSEANNA FLORENTINO MD
--- NOTE | 2018-01-15 10:16 | PDOC.ERCMPRO ---
Care Management Progress Note 01/15/18-32 week Pt seen with rib fx/pneumonia by Dr. Danika Lorenzana on 01/14/18. Pt was prescribed Lidocaine patch. Pt has called today as the pharmacy has told her she needs a Pre-Auth for the RX. CM called Pt's PCP, Sheila Linton at [facility] and spoke with certified legal secretary specialist who asked me to leave a VM for Sheila Linton's Nurse. CM contacted Pt to inform her the PCP is aware and will work on the Pre-Auth.
--- NOTE | 2018-01-15 10:22 | CMPROGNOTE_ITS ---
Care Management Progress Note 01/15/18-32 week Pt seen with rib fx/pneumonia by Dr. Danika Lorenzana on 12/24. Pt was prescribed Lidocaine patch. Pt has called today as the pharmacy has told her she needs a Pre-Auth for the RX. CM called Pt's PCP, Sheila Linton at [facility] and spoke with warehouse order filler who asked me to leave a VM for Sheila Linton's Nurse. CM contacted Pt to inform her the PCP is aware and will work on the Pre-Auth.
== END 2018-01-14 19:10 | disposition home or self-care (01) ==
PROVIDERS: Emergency Provider Student in an Organized Health Care Education/Training Program; PCP Family Medicine
DX: S22.31XA Fracture of one rib, right side, initial encounter for closed fracture (principal); R00.0 Tachycardia, unspecified; R05 Cough; X58.XXXA Exposure to other specified factors, initial encounter; Z3A.32 32 weeks gestation of pregnancy
CPT/HCPCS: 99283; 71046

== ENCOUNTER 2018-01-28 12:22 | Outpatient (CLI) | payer MEDICAID, SELFPAY | END 2018-01-28 12:42 | PROVIDERS: PCP Family Medicine; Visit Provider Obstetrics & Gynecology | DX: O46.93 Antepartum hemorrhage, unspecified, third trimester (principal); Z3A.34 34 weeks gestation of pregnancy | CPT/HCPCS: 59025 ==

== ENCOUNTER 2018-01-31 15:49 | Outpatient (CLI) | payer MEDICAID, SELFPAY ==
[2018-01-31 16:31] LABS: HCT 29.7 % (36.0-46.0); Mean Corp. HGB Concentration 33.7 g/dL (32.0-36.0); Mean Corpuscular Hemoglobin 29.9 pg (27.0-33.0); Mean Corpuscular Volume 88.9 fL (80-95); Mean Platelet Volume 9.6 fL (8.0-11.0); Platelet Count 439 x1000/uL (130-400); RBC 3.34 m/cumm (4.00-5.20); RBC Distribution Width 12.5 % (11.7-14.6); White Blood Cell Count 15.69 k/cumm (4.4-10.8)
[2018-01-31 19:00] LABS: ALT 20 U/L (12-78); AST 17 U/L (15-37); Albumin 2.2 g/dL (3.4-5.0); Alkaline Phosphatase 182 U/L (46-116); Anion Gap 11.9 mmol/L (3-11); BUN 4 mg/dL (7-18); Bilirubin, Total 0.2 mg/dL (0.2-1.0); CO2 22.1 mmol/L (21.0-32.0); CREATININE 0.46 mg/dL (0.55-1.02); Calcium 8.4 mg/dL (8.5-10.1); Chloride 104 mmol/L (98-107); Glucose 85 mg/dL (70-100); Potassium 3.7 mmol/L (3.5-5.1); Sodium 138 mmol/L (136-145); Total Protein 5.6 g/dL (6.4-8.2); Uric Acid 3.7 mg/dL (2.6-6.0)
== END 2018-01-31 16:09 ==
PROVIDERS: PCP Family Medicine; Visit Provider Obstetrics & Gynecology
DX: O13.9 Gestational [pregnancy-induced] hypertension without significant proteinuria, unspecified trimester (principal)
CPT/HCPCS: 36415; 80053; 85027; 84550

== ENCOUNTER 2018-02-04 00:12 | Outpatient (CLI) | payer MEDICAID, SELFPAY ==
--- NOTE | 2018-02-04 13:50 | DI.US_ITS ---
SYMPTOMS/DIAGNOSIS: GESTATIONAL HYPERTENSION, O13.9 OBSTETRICAL ULTRASOUND: Many abnormalities cannot be diagnosed. A normal exam does not exclude a congenital anomaly. Radiology No. [id number] LMP: Exam Date: 02/04/18 [facility] wks days on EDC ([facility]) Confirmed: HISTORY: ---- PREDICTED GESTATIONAL AGE NUMBER 35+1 weeks with a range of 34+1 weeks to 36+1 weeks. 1 Determined by___1STUS___LMP___HISTORY PLACENTA PRESENTATION Grade II Cephalic_X__ Anterior_X__Posterior___ Breech____ Right__X___ Left Transverse(head right___ Fundal_X__Low-lying___Previa___ Transverse(head left___ Varying BIOMETRY AMNIOTIC FLUID BPD: 92 mm 37+2 weeks Normal HC: 326 mm 36+6 weeks Oligo Polyhydramnios AC: 345 mm 38+3 weeks FL: 73 mm 37+1 weeks AMNIOTIC FLUID INDEX >26 WK CRL: mm weeks Cisterna Magna: mm CI: 90 RUQ: 8.1 LUQ: 1.46 Cerebellum: cm EFW: 3316 grams Percentile: 98th RLQ: 3.36 LLQ: 2.43 Total: 15.4 cm Composite AGE= 37+3 wks EDC by US: 02/22/18 BIOPHYSICAL PROFILE ANATOMY IDENTIFIED SCORE 0/2 Heart: 4-Chamber_X__Rate:BPM LVOT: RVOT: Amniotic Fluid(>2cms)____ Stomach:___X____ Kidneys:__X Respirations (>30 secs) Bladder:____X____ Post. Fossa: Body Flex/Extension 3 vessel cord: Ventricles: cord insertion: Lips:____ Extremity Flex/Extension spinal morphology: Nose: Total Score= Palate: NS=not seen COMMENTS: There is a single living intrauterine gestation. Estimated sonographic age is 37 weeks 3 days. The fetus is in the cephalic presentation. Estimated weight is 3316 g, which is the 98th percentile. Amniotic fluid index is 15.4 cm. Visually, amniotic fluid appears within normal limits. Placenta is anterior, fundal and to the right. No previa is noted. IMPRESSION: Single living intrauterine gestation. Estimated sonographic age is 37 weeks 3 days.
== END 2018-02-04 00:32 ==
PROVIDERS: PCP Family Medicine; Visit Provider Obstetrics & Gynecology
DX: O13.3 Gestational [pregnancy-induced] hypertension without significant proteinuria, third trimester (principal); Z36.89 Encounter for other specified antenatal screening
CPT/HCPCS: 76816

== ENCOUNTER 2018-02-04 13:51 | Outpatient (REF) | payer MEDICAID, SELFPAY ==
[2018-02-04 15:13] LABS: PROTEIN 13.9 mg/dL (0.0-11.9)
[2018-02-04 15:21] LABS: TOTAL PROTEIN,URINE TIMED 243.3 mg/24hr (0.0-149.1); Total Volume 1750 ml
== END 2018-02-04 14:11 ==
LOC: LBN 13:51
PROVIDERS: PCP Family Medicine; Visit Provider Obstetrics & Gynecology
DX: O13.9 Gestational [pregnancy-induced] hypertension without significant proteinuria, unspecified trimester (principal)
CPT/HCPCS: 81050; 84155

== ENCOUNTER 2018-02-12 12:03 | Observation (INO) | payer MEDICAID, SELFPAY ==
[2018-02-12 12:31] LABS: PROTEIN 7.1 mg/dL
[2018-02-12 12:32] LABS: COMMENT (LAB VIEW ONLY) 20.19 mg/dL; Prot/Crea Ur Ratio 0.35
== END 2018-02-12 13:00 | disposition home or self-care (01) ==
LOC: OBS 12:12
PROVIDERS: Admitting Provider Obstetrics & Gynecology Gynecology; PCP Family Medicine; Visit Provider Obstetrics & Gynecology Gynecology
DX: O13.3 Gestational [pregnancy-induced] hypertension without significant proteinuria, third trimester (principal); Z3A.36 36 weeks gestation of pregnancy
CPT/HCPCS: 59025; 82565; 84156; 87081; G0378

== ENCOUNTER 2018-02-14 10:33 | Outpatient (CLI) | payer MEDICAID, SELFPAY ==
[2018-02-14 10:55] LABS: HCT 30.8 % (36.0-46.0); HGB 10.1 g/dL (12.0-15.5); Mean Corp. HGB Concentration 32.8 g/dL (32.0-36.0); Mean Corpuscular Hemoglobin 28.9 pg (27.0-33.0); Mean Platelet Volume 9.3 fL (8.0-11.0); Platelet Count 461 x1000/uL (130-400); RBC Distribution Width 12.7 % (11.7-14.6); White Blood Cell Count 13.39 k/cumm (4.4-10.8)
[2018-02-14 11:08] LABS: PROTEIN 10.9 mg/dL
[2018-02-14 11:09] LABS: COMMENT (LAB VIEW ONLY) 38.78 mg/dL; Prot/Crea Ur Ratio 0.28
[2018-02-14 11:41] LABS: ALT 16 U/L (12-78); AST 22 U/L (15-37); Albumin 2.1 g/dL (3.4-5.0); Alkaline Phosphatase 210 U/L (46-116); Bilirubin, Total 0.3 mg/dL (0.2-1.0); CREATININE 0.51 mg/dL (0.55-1.02); Total Protein 5.8 g/dL (6.4-8.2)
[2018-02-14 11:54] LABS: Bilirubin, Direct 0.09 mg/dL (0.00-0.20); Uric Acid 3.9 mg/dL (2.6-6.0)
== END 2018-02-14 10:53 ==
PROVIDERS: PCP Family Medicine; Visit Provider Nurse Practitioner Women's Health
DX: O13.9 Gestational [pregnancy-induced] hypertension without significant proteinuria, unspecified trimester (principal)
CPT/HCPCS: 36415; 80076; 85027; 82565; 84156; 84550

== ENCOUNTER 2018-02-14 11:07 | Observation (INO) | payer MEDICAID, SELFPAY | END 2018-02-14 13:03 | disposition home or self-care (01) | PROVIDERS: Admitting Provider Advanced Practice Midwife; PCP Family Medicine; Visit Provider Advanced Practice Midwife | DX: O13.3 Gestational [pregnancy-induced] hypertension without significant proteinuria, third trimester (principal); Z3A.36 36 weeks gestation of pregnancy | CPT/HCPCS: 59025; G0378 ==

== ENCOUNTER 2018-02-18 13:11 | Inpatient (IN) | payer MEDICAID, SELFPAY ==
[2018-02-18 13:54] LABS: HCT 30.9 % (36.0-46.0); HGB 10.4 g/dL (12.0-15.5); Mean Corp. HGB Concentration 33.7 g/dL (32.0-36.0); Mean Corpuscular Hemoglobin 29.3 pg (27.0-33.0); Mean Platelet Volume 9.6 fL (8.0-11.0); Platelet Count 499 x1000/uL (130-400); RBC 3.55 m/cumm (4.00-5.20); RBC Distribution Width 12.7 % (11.7-14.6); White Blood Cell Count 15.57 k/cumm (4.4-10.8)
[2018-02-18] MEDS: Zolpidem 5 MG TAB 10 MG PO (21:11)
--- NOTE | 2018-02-19 11:58 | W.PM.HP.N ---
Date of service: 02/19/18 Time of Service: 11:58 Assessment and Plan (1) Preeclampsia: Current visit: No Status: Acute Please see centricity record for complete assessment and plan (2) : Current visit: No Status: Acute History of Present Illness Chief Complaint: Admission for labor induction Review of Systems Review of Systems Please see centricity record for review of systems All systems reviewed & are unremarkable except as noted in HPI and below PFSH Family History Mother Diabetes Alcohol abuse Breast cancer Bipolar 1 disorder Father Alcohol abuse Heart disease COPD (chronic obstructive pulmonary disease) H/O breast biopsy (Acute) Excision, Pilonidal Cyst Social History adopted: No foster care: No number of children: 2 current occupational status: employed current occupation: [employer] pets and animals: Yes (2 dogs) Smoking/Tobacco Use Status: Current every day alcohol intake: never seatbelt use: always helmet use: Yes drive intox or ride w/ intox 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 to check) working smoke detector in home: Yes fire extinguisher in home: Yes carbon monox detector in home: Yes firearms in home: No victim of physical abuse: No victim of emotional abuse: No victim of sexual abuse: No Meds Home Medications Medication Instructions Recorded Confirmed Type PNV 727-wvtop-toaek-3-fish oil 1 ea PO DAILY tab.chew 08/29/17 02/25/18 History [ with DHA-Folic Acid] ranitidine HCl 300 mg PO DAILY #60 tab-cap 10/31/17 02/18/18 Rx albuterol sulfate HFA 90 1 puff IH Q6H PRN #8 gm 01/06/18 02/25/18 Rx mcg/actuation aerosol inhaler acetaminophen [Tylenol] 650 mg PO Q6H PRN #30 tab 01/14/18 02/25/18 Rx lansoprazole 30 mg capsule,delayed 30 mg PO DAILY #30 cap 02/12/18 02/18/18 Rx release ferrous sulfate [Iron (ferrous 325 mg PO DAILY 02/25/18 02/25/18 History sulfate)] levofloxacin 750 mg PO DAILY #6 tab 02/25/18 Rx Allergies Allergy/AdvReac Type Severity Reaction Status Date / Time No Known Drug Allergies Allergy Unverified 02/25/18 08:32 Exam Narrative Exam Narrative: Please see centricity record for physical examination Results Labs : 02/20/18 06:10 Laboratory Results - last 24 hr 02/18/18 02/18/18 13:35 13:35 WBC 15.57 H RBC 3.55 L Hgb 10.4 L Hct 30.9 L MCV 87.0 MCH 29.3 MCHC 33.7 RDW 12.7 Plt Count 499 H MPV 9.6 Patient ABO/Rh O Positive Antibody Screen Negative
--- NOTE | 2018-02-19 12:01 | HPE_ITS ---
Date of service: 02/19/18 Time of Service: 11:58 Assessment and Plan (1) Preeclampsia: Current visit: No Status: Acute Please see centricity record for complete assessment and plan (2) : Current visit: No Status: Acute History of Present Illness Chief Complaint: Admission for labor induction Review of Systems Review of Systems Please see centricity record for review of systems All systems reviewed & are unremarkable except as noted in HPI and below PFSH Family History Mother Diabetes Alcohol abuse Breast cancer Bipolar 1 disorder Father Alcohol abuse Heart disease COPD (chronic obstructive pulmonary disease) H/O breast biopsy (Acute) Excision, Pilonidal Cyst Social History adopted: No foster care: No number of children: 2 current occupational status: employed current occupation: [employer] pets and animals: Yes (2 dogs) Smoking/Tobacco Use Status: Current every day alcohol intake: never seatbelt use: always helmet use: Yes drive intox or ride w/ intox emergency vehicle driver: No water heater temp set < 120 deg: No (enc. to check) working smoke detector in home: Yes fire extinguisher in home: Yes carbon monox detector in home: Yes firearms in home: No victim of physical abuse: No victim of emotional abuse: No victim of sexual abuse: No Meds Home Medications Medication Instructions Recorded Confirmed Type PNV 268-wxksk-zlrus-3-fish oil 1 ea PO DAILY tab.chew 08/29/17 02/25/18 History [ with DHA-Folic Acid] ranitidine HCl 300 mg PO DAILY #60 tab-cap 10/31/17 02/18/18 Rx albuterol sulfate HFA 90 1 puff IH Q6H PRN #8 gm 01/06/18 02/25/18 Rx mcg/actuation aerosol inhaler acetaminophen [Tylenol] 650 mg PO Q6H PRN #30 tab 01/14/18 02/25/18 Rx lansoprazole 30 mg capsule,delayed 30 mg PO DAILY #30 cap 02/12/18 02/18/18 Rx release ferrous sulfate [Iron (ferrous 325 mg PO DAILY 02/25/18 02/25/18 History sulfate)] levofloxacin 750 mg PO DAILY #6 tab 02/25/18 Rx Allergies Allergy/AdvReac Type Severity Reaction Status Date / Time No Known Drug Allergies Allergy Unverified 02/25/18 08:32 Exam Narrative Exam Narrative: Please see centricity record for physical examination Results Labs : 02/20/18 06:10 Laboratory Results - last 24 hr 02/18/18 02/18/18 13:35 13:35 WBC 15.57 H RBC 3.55 L Hgb 10.4 L Hct 30.9 L MCV 87.0 MCH 29.3 MCHC 33.7 RDW 12.7 Plt Count 499 H MPV 9.6 Patient ABO/Rh O Positive Antibody Screen Negative
[2018-02-19] MEDS: Normal Saline Flush 10 ML SYR IVP (12:14)
[2018-02-19] MEDS: Lactated Ringers 1,000 ML 120 ML IV (12:15)
[2018-02-19] MEDS: Lidocaine 2% Pres-Free 5 ML VIAL (21:20)
[2018-02-19] MEDS: Acetaminophen 325 MG TAB 650 MG PO (23:28)
[2018-02-19] MEDS: Ibuprofen 600 MG TAB PO (23:28)
[2018-02-19] MEDS: Carboprost 250 MCG/ML AMP IM (23:31)
[2018-02-19] MEDS: Tranexamic Acid 1,000 MG/10 ML VIAL 1000 MG (23:35)
[2018-02-20] MEDS: Omeprazole 20 MG CAPCR PO (07:20)
[2018-02-20 07:32] LABS: HCT 21.5 % (36.0-46.0); HGB 7.1 g/dL (12.0-15.5); Mean Corpuscular Volume 87.8 fL (80-95); Mean Platelet Volume 10.1 fL (8.0-11.0); Platelet Count 404 x1000/uL (130-400); RBC 2.45 m/cumm (4.00-5.20); RBC Distribution Width 12.5 % (11.7-14.6); White Blood Cell Count 23.95 k/cumm (4.4-10.8)
[2018-02-20] MEDS: Ibuprofen 600 MG TAB PO (07:35)
[2018-02-20] MEDS: Normal Saline Flush 10 ML SYR IVP (12:01)
--- NOTE | 2018-02-21 12:05 | W.PM.DS.N ---
Date of service: 02/21/18 Time of Service: 12:05 DS: Diagnosis Discharge Diagnosis (1) Preeclampsia: Status: Acute (2) Vaginal delivery: Status: Acute Discharge Plan Disposition Patient Disposition: HOME Condition: Good Discharge Details Reason For Visit: 37 WEEKS IUP, PREECLAMPSIA Admit Date/Time: 02/18/18 13:11 Admit Provider: Racheal Sims Attending Provider: Leticia Parkinson Primary Care Provider: Marlene Linton V Hospital Course Hospital Course: Admitted 02/18/18. Did not require cervical ripening since Hi score = 10. Oxytocin infusion initiated for IOL 02/20/18 with of viable male named Alexis on the evening 02/20/18. PPH with EBL 700 treated with urterotonics and evaculation of organized clots from lower uterine segment. Pt's PP Hgb 7.1. Pt not symptomatic. VSS. Discharged to home PPD 2. Successfully . Home Meds and New Rx's Prescriptions: Continue lansoprazole [Prevacid] 30 mg capsule,delayed release(DR/EC) 30 mg PO DAILY Qty: 30 RF: 1 PNV 289-sctvl-mziwl-3-fish oil [ with DHA-Folic Acid] 1 EACH tablet,chewable 1 ea PO DAILY RF: 0 ranitidine HCl 300 MG tablet 300 mg PO DAILY Qty: 60 RF: 4 albuterol sulfate 90 mcg/actuation HFA aerosol inhaler 1 puff IH Q6H PRN (Reason: shortness of breath or wheezing) Qty: 8 RF: 0 acetaminophen [Tylenol] 325 mg tablet 650 mg PO Q6H PRN (Reason: pain) Qty: 30 RF: 0 Discontinued cyclobenzaprine 5 mg tablet 5 mg PO TID PRN (Reason: muscle spasm) Qty: 30 RF: 0 hydroxyzine pamoate [Vistaril] 50 mg capsule 50 mg PO QID PRN (Reason: itching) Qty: 30 RF: 0 lidocaine 5 % adhesive patch,medicated 1 patch Transdermal DAILY Qty: 15 RF: 0 No Action ferrous sulfate [Iron (ferrous sulfate)] 325 mg (65 mg iron) Tablet 325 mg PO DAILY RF: 0 levofloxacin 750 mg tablet 750 mg PO DAILY Qty: 6 RF: 0 Discharge Instructions Additional Instructions: Watch your baby for early feeding cues, to know when your baby is hungry (mouth movements, turns toward finger if cheek gently stroked, sucking on finger or fist). Crying is a late sign of hunger. Expect that your baby will want to eat about every 1.5-3 hours (8-12 feedings per day). If your baby isn't asking to feed, wake your baby for feedings, at least every 3 hours. Once latched, some newborns need encouragement to feed actively throughout a feeding. Breast massage, combined with deep breast compressions, are usually effective in keeping babies awake, and drinking well. Signs that your baby is well include sustained bursts of sucking (10 or more strong sucks in a row, before short pauses, in a full term infant), deep and rhythmic jaw movements, frequent swallowing (once milk has come in ), and contentment between feedings. Also, once your milk is in, expect at least 6-8 wet diapers, and 4-6 seedy, loose, yellow bms (poops) everyday. Your baby should return to weight by 10-14 days old. Contact your baby's medical provider if your baby isn't reaching the above goals, or with any concerns about your baby. Also seek help for any of the following: difficulty latching/feeding your baby fussiness or sleepy behaviors at the breast painful if thinking about stopping if you haven't experienced increased breast fullness or size by 5 days after if you have any nipple breakdown/trauma any questions or concerns [facility] - Consultation [facility] - The [facility] (29/10 availbility) Or Toll Free Mother's Discharge Instructions Please call the Center 24 hours a day with questions about yourself or your baby. Rest: Take it easy! For the first two weeks, just take care of you and your baby. Sleep when your baby does. Limit visitors. Fathers and family members or friends can help by doing housework, cooking, caring for other children. Do not lift anything heavier than your baby. Gradually increase your activity over 6 weeks. Judit Care: For the next two weeks, use your plastic squeeze bottle filled with warm water to rinse yourself every time you urinate or have a bowel movement. Sit in a clean tub with fresh, warm water for 15-20 minutes a few times a day. You may use Tucks pads purchased from the [employer] to relieve discomfort from stiches or hemorrhoids. Call your provider if you have increased swelling or pain around your episiotomy or have difficulties with urination. Lochia (flow): Your flow should be no heavier than a normal period. It will be bright red for 2-3 days, then pinkish and finally colorless. If you flow becomes bright red again, decrease your activity. Do not use tampons until your care provider advises you it is OK. Call your provider if you experience heavy bright red flow (more than one pad per hour) or your flow has a foul smelling odor. Sexual Relations/Contraception: Check with your Provider for advice on when to resume sexual relations with your partner. Make sure you are comfortable. Use extra lubrication, such as KY jelly (not vaseline) or other vaginal lubricant. USE CONTRACEPTION... you can get even if you are or have not yet had a period. Nutrition: What you eat after your baby is born is as important as what you ate before your baby was born. Eat a well balanced diet. Drink 6-8 glasses of fluid a day. Continue to take your vtiamins. A healthy diet will help you feel better and stay well. Emotions/Baby Blues: Following the of your baby, emotions can vary from ronnie to exhaustion. In the first few days you may feel tired and anxious. You may have little control over your schedule. It is normal to have times when you feel sad or cry easily due to all the changes in hormone levels. This is called the Baby Blues. However, if these feelings continue or interfere with your ability to take care of yourself or your baby, or you have feelings of panic, anger, or fear of harming yourself or your baby, call your provider. Breast Care: Wear a well fitting bra to support your breasts. Refer to your handout in your discharge package for tips to relieve engorgement. Call your provider for persistent breast pain, chills, or fever over 100.8F. : Practice careful positioning and frequent feeding as demonstrated in the hospital. The printed information in your packet covers this in detail. Formula Feeding Mothers: Your milk will come in. Avoid stimulating your breasts. Do not let warm water from the shower fall on them. Ice packs to your breasts and Tylenol or Ibuprofen may be used to relieve the discomfort. Keep your follow up appointment: Activity:: Activity as Tolerated Equipment/Supplies:: No Equipment Needed Diet:: As Tolerated Discharge Orders Discharge Orders: Discharge Order (Routine); Ordered 02/21/18 Ordered By: Leticia Parkinson Discharge Data Discharge Date/Time-TO BE ENTERED AT DEPARTURE: 02/21/18 13:48 DS: Data Vitals/I&O Vitals and I&O: Vital Signs Pain Level 5 02/20/18 07:35 Intake & Output 02/20/18 02/21/18 02/21/18 23:59 11:59 23:59 Intake Total 1000 / 1000 Balance 1000 / 1000 Intake: IV 1000 / 1000 PFSH Family History Mother Diabetes Alcohol abuse Breast cancer Bipolar 1 disorder Father Alcohol abuse Heart disease COPD (chronic obstructive pulmonary disease) H/O breast biopsy (Acute) Excision, Pilonidal Cyst Social History adopted: No foster care: No number of children: 2 current occupational status: employed current occupation: [employer] pets and animals: Yes (2 dogs) Smoking/Tobacco Use Status: Current every day alcohol intake: never seatbelt use: always helmet use: Yes drive intox or ride w/ intox driver license agent: No water heater temp set < 120 deg: No (enc. to check) working smoke detector in home: Yes fire extinguisher in home: Yes carbon monox detector in home: Yes firearms in home: No victim of physical abuse: No victim of emotional abuse: No victim of sexual abuse: No
--- NOTE | 2018-02-21 12:08 | DSE_ITS ---
Date of service: 02/21/18 Time of Service: 12:05 DS: Diagnosis Discharge Diagnosis (1) Preeclampsia: Status: Acute (2) Vaginal delivery: Status: Acute Discharge Plan Disposition Patient Disposition: HOME Condition: Good Discharge Details Reason For Visit: 37 WEEKS IUP, PREECLAMPSIA Admit Date/Time: 02/18/18 13:11 Admit Provider: Racheal Sims Attending Provider: Leticia Parkinson Primary Care Provider: Marlene Linton V Hospital Course Hospital Course: Admitted 02/18/18. Did not require cervical ripening since Hi score = 10. Oxytocin infusion initiated for IOL 02/20/18 with of viable male named Alexis on the evening 02/20/18. PPH with EBL 700 treated with urterotonics and evaculation of organized clots from lower uterine segment. Pt' s PP Hgb 7.1. Pt not symptomatic. VSS. Discharged to home PPD 2. Successfully . Home Meds and New Rx's Prescriptions: Continue lansoprazole [Prevacid] 30 mg capsule,delayed release(DR/EC) 30 mg PO DAILY Qty: 30 RF: 1 PNV 841-bathc-dfcny-3-fish oil [ with DHA-Folic Acid] 1 EACH tablet, chewable 1 ea PO DAILY RF: 0 ranitidine HCl 300 MG tablet 300 mg PO DAILY Qty: 60 RF: 4 albuterol sulfate 90 mcg/actuation HFA aerosol inhaler 1 puff IH Q6H PRN (Reason: shortness of breath or wheezing) Qty: 8 RF: 0 acetaminophen [Tylenol] 325 mg tablet 650 mg PO Q6H PRN (Reason: pain) Qty: 30 RF: 0 Discontinued cyclobenzaprine 5 mg tablet 5 mg PO TID PRN (Reason: muscle spasm) Qty: 30 RF: 0 hydroxyzine pamoate [Vistaril] 50 mg capsule 50 mg PO QID PRN (Reason: itching) Qty: 30 RF: 0 lidocaine 5 % adhesive patch,medicated 1 patch Transdermal DAILY Qty: 15 RF: 0 No Action ferrous sulfate [Iron (ferrous sulfate)] 325 mg (65 mg iron) Tablet 325 mg PO DAILY RF: 0 levofloxacin 750 mg tablet 750 mg PO DAILY Qty: 6 RF: 0 Discharge Instructions Additional Instructions: Watch your baby for early feeding cues, to know when your baby is hungry ( mouth movements, turns toward finger if cheek gently stroked, sucking on finger or fist). Crying is a late sign of hunger. Expect that your baby will want to eat about every 1.5-3 hours (8-12 feedings per day). If your baby isn't asking to feed, wake your baby for feedings, at least every 3 hours. Once latched, some newborns need encouragement to feed actively throughout a feeding. Breast massage, combined with deep breast compressions, are usually effective in keeping babies awake, and drinking well. Signs that your baby is well include sustained bursts of sucking (10 or more strong sucks in a row, before short pauses, in a full term ), deep and rhythmic jaw movements, frequent swallowing (once milk has come in ), and contentment between feedings. Also, once your milk is in, expect at least 6-8 wet diapers, and 4-6 seedy, loose, yellow bms (poops) everyday. Your baby should return to weight by 10-14 days old. Contact your baby's medical provider if your baby isn't reaching the above goals, or with any concerns about your baby. Also seek help for any of the following: * difficulty latching/feeding your baby * fussiness or sleepy behaviors at the breast * painful * if thinking about stopping * if you haven't experienced increased breast fullness or size by 5 days after * if you have any nipple breakdown/trauma * any questions or concerns [facility] - Consultation [facility] - The Center (29/10 availbility) Or Toll Free Mother's Discharge Instructions Please call the Center 24 hours a day with questions about yourself or your baby. Rest: Take it easy! For the first two weeks, just take care of you and your baby. Sleep when your baby does. Limit visitors. Fathers and family members or friends can help by doing housework, cooking, caring for other children. Do not lift anything heavier than your baby. Gradually increase your activity over 6 weeks. Judit Care: For the next two weeks, use your plastic squeeze bottle filled with warm water to rinse yourself every time you urinate or have a bowel movement. Sit in a clean tub with fresh, warm water for 15-20 minutes a few times a day. You may use Tucks pads purchased from the [employer] to relieve discomfort from stiches or hemorrhoids. Call your provider if you have increased swelling or pain around your episiotomy or have difficulties with urination. Lochia (flow): Your flow should be no heavier than a normal period. It will be bright red for 2-3 days, then pinkish and finally colorless. If you flow becomes bright red again, decrease your activity. Do not use tampons until your care provider advises you it is OK. Call your provider if you experience heavy bright red flow (more than one pad per hour) or your flow has a foul smelling odor. Sexual Relations/Contraception: Check with your Provider for advice on when to resume sexual relations with your partner. Make sure you are comfortable. Use extra lubrication, such as KY jelly (not vaseline) or other vaginal lubricant. USE CONTRACEPTION... you can get even if you are or have not yet had a period. Nutrition: What you eat after your baby is born is as important as what you ate before your baby was born. Eat a well balanced diet. Drink 6-8 glasses of fluid a day. Continue to take your vtiamins. A healthy diet will help you feel better and stay well. Emotions/Baby Blues: Following the of your baby, emotions can vary from ronnie to exhaustion. In the first few days you may feel tired and anxious. You may have little control over your schedule. It is normal to have times when you feel sad or cry easily due to all the changes in hormone levels. This is called the Baby Blues. However, if these feelings continue or interfere with your ability to take care of yourself or your baby, or you have feelings of panic, anger, or fear of harming yourself or your baby, call your provider. Breast Care: Wear a well fitting bra to support your breasts. Refer to your handout in your discharge package for tips to relieve engorgement. Call your provider for persistent breast pain, chills, or fever over 100.8F. : Practice careful positioning and frequent feeding as demonstrated in the hospital. The printed information in your packet covers this in detail. Formula Feeding Mothers: Your milk will come in. Avoid stimulating your breasts. Do not let warm water from the shower fall on them. Ice packs to your breasts and Tylenol or Ibuprofen may be used to relieve the discomfort. Keep your follow up appointment: Activity:: Activity as Tolerated Equipment/Supplies:: No Equipment Needed Diet:: As Tolerated Discharge Orders Discharge Orders: Discharge Order (Routine); Ordered 02/21/18 Ordered By: Leticia Parkinson Discharge Data Discharge Date/Time-TO BE ENTERED AT DEPARTURE: 02/21/18 13:48 DS: Data Vitals/I&O Vitals and I&O: Vital Signs Pain Level 5 02/20/18 07:35 Intake & Output 02/20/18 02/21/18 02/21/18 23:59 11:59 23:59 Intake Total 1000 / 1000 Balance 1000 / 1000 Intake: IV 1000 / 1000 PFSH Family History Mother Diabetes Alcohol abuse Breast cancer Bipolar 1 disorder Father Alcohol abuse Heart disease COPD (chronic obstructive pulmonary disease) H/O breast biopsy (Acute) Excision, Pilonidal Cyst Social History adopted: No foster care: No number of children: 2 current occupational status: employed current occupation: [employer] pets and animals: Yes (2 dogs) Smoking/Tobacco Use Status: Current every day alcohol intake: never seatbelt use: always helmet use: Yes drive intox or ride 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 to check) working smoke detector in home: Yes fire extinguisher in home: Yes carbon monox detector in home: Yes firearms in home: No victim of physical abuse: No victim of emotional abuse: No victim of sexual abuse: No
== END 2018-02-21 13:48 | disposition home or self-care (01) | DRG 806 ==
PROVIDERS: Admitting Provider Obstetrics & Gynecology; PCP Family Medicine; Visit Provider Obstetrics & Gynecology Gynecology
DX: O14.04 Mild to moderate pre-eclampsia, complicating childbirth (principal); D62 Acute posthemorrhagic anemia; Z37.0 Single live birth; O70.0 First degree perineal laceration during delivery; O66.0 Obstructed labor due to shoulder dystocia; Z3A.37 37 weeks gestation of pregnancy; O72.2 Delayed and secondary postpartum hemorrhage; O90.81 Anemia of the puerperium
CPT/HCPCS: 36415; 85027; 86850; 86900; 86901; 99221; 99238; G0378; J3490

== ENCOUNTER 2018-02-25 08:21 | Emergency (ER) | payer MEDICAID, SELFPAY ==
[2018-02-25] VITALS (54 sets, daily range): BP systolic 125–159; BP diastolic 80–141; PULSE 60–115; RESP 4–28; TEMP 37–37.2; O2SAT 97–100
--- NOTE | 2018-02-25 08:22 | W.ED.GENAD ---
Discharge Plan Disposition Patient Disposition: HOME Condition: Good Discharge Details Chief Complaint: Palpitatns Clinical Impression: Anemia requiring transfusions, Palpitations, Pneumonia Primary Care Provider: Marlene Linton V ED Provider: Sj Mclean Home Meds and New Rx's Prescriptions: New levofloxacin 750 mg tablet 750 mg PO DAILY Qty: 6 RF: 0 Continue lansoprazole [Prevacid] 30 mg capsule,delayed release(DR/EC) 30 mg PO DAILY Qty: 30 RF: 1 PNV 288-havqc-lbsis-3-fish oil [ with DHA-Folic Acid] 1 EACH tablet,chewable 1 ea PO DAILY RF: 0 ranitidine HCl 300 MG tablet 300 mg PO DAILY Qty: 60 RF: 4 albuterol sulfate 90 mcg/actuation HFA aerosol inhaler 1 puff IH Q6H PRN (Reason: shortness of breath or wheezing) Qty: 8 RF: 0 acetaminophen [Tylenol] 325 mg tablet 650 mg PO Q6H PRN (Reason: pain) Qty: 30 RF: 0 ferrous sulfate [Iron (ferrous sulfate)] 325 mg (65 mg iron) Tablet 325 mg PO DAILY RF: 0 Discharge Instructions Instructions: Anemia (ED), Pneumonia (ED) Additional Instructions: follow up with your OB provider's group next week, call for an appointment if you have worsening shortness of breath or severe chest pain/pressure return to the emergency department for reevaluation Medical Decision Making 32 yo female who denies chronic medical problems who is 6 days after having vaginal delivery who comes in with complaints of feeling her heart beating fast starting around 4am and shortness of breath for a few days. Denies fever or chest pain or pressure. She is a smoker otherwise denies alcohol or drug use. She is speaking in full sentences, HR is 100-110 in sinus rhythm on my exam with 100% spo2 on room air speaking in full sentences with clear lung sounds. Given her tachycardia and recent post , has wells that is moderate, will cta to eval for pe and pericardial effusion and also eval for anemia and monitor pt's labs show hgb of 6.7, consented pt for transfusion. Has mild leukocytosis, and CTA shows small right pleural effusion and pna per Dr. Bradley from radiology. NO PE. She remains HD stable, still has BP's systolic 140-158. Will transfuse and discuss if she needs antihypertensives with OB Spoke with Dr. Sims from OB who states if pt is less than 160 systolic no meds required. Recommended f/u with them next week. Pt remains stable, once transfusion is done will d/c with abx for pna and returnp recautions given Differential Diagnosis anemia, pe, preeclampsia, anxiety, pericardial effusion Medical Records Medical records reviewed: Yes I reviewed the patient's medical records. Imaging Data Radiologic Study: Attestation: I personally reviewed and interpreted this imaging study as follows: Imaging: CT Scan Radiologist's impression: no PE, small right pleural effusion, evidence of pneumonia Lab Data Lab results reviewed: Yes I reviewed the patient's lab results. ECG Data Attestation: I personally reviewed and interpreted this ECG (s) as follows: Prior ECG tracings: not available for review Interpretation: sinus tachycardia, rate of 106, pr 156, normal axis, no st elevations or depressions or t wave inversions HPI General Mode of arrival: ambulatory. Date/Time Provider Initiated Documentation: 02/25/18 08:21. Limitations to Documentation: no limitations. Information obtained by: patient. History of Present Illness 32 year old F presents to the emergency department with the chief complaint of palpitations, described as moderate, with intensity rated at 5. Patient reports no radiation. Patient started experiencing this hour(s) (4) and it has been constant. No relieving factors improve symptom(s), No exacerbating factors reported . Patient notes shortness of breath. Patient did receive the following treatments prior to arrival, none Related Data Home Medications Medication Instructions Recorded Confirmed PNV 705-duxyw-hjtqn-3-fish oil 1 ea PO DAILY tab.chew 08/29/17 02/25/18 [ with DHA-Folic Acid] ranitidine HCl 300 mg PO DAILY #60 tab-cap 10/31/17 02/18/18 albuterol sulfate HFA 90 1 puff IH Q6H PRN #8 gm 01/06/18 02/25/18 mcg/actuation aerosol inhaler acetaminophen [Tylenol] 650 mg PO Q6H PRN #30 tab 01/14/18 02/25/18 lansoprazole 30 mg capsule,delayed 30 mg PO DAILY #30 cap 02/12/18 02/18/18 release ferrous sulfate [Iron (ferrous 325 mg PO DAILY 02/25/18 02/25/18 sulfate)] levofloxacin 750 mg PO DAILY #6 tab 02/25/18 Previous Rx's Medication Instructions Recorded ranitidine HCl 300 mg PO DAILY #60 tab-cap 10/31/17 albuterol sulfate HFA 90 1 puff IH Q6H PRN #8 gm 01/06/18 mcg/actuation aerosol inhaler acetaminophen [Tylenol] 650 mg PO Q6H PRN #30 tab 01/14/18 lansoprazole 30 mg capsule,delayed 30 mg PO DAILY #30 cap 02/12/18 release levofloxacin 750 mg PO DAILY #6 tab 02/25/18 Allergies Allergy/AdvReac Type Severity Reaction Status Date / Time No Known Drug Allergies Allergy Unverified 02/25/18 08:32 General JETT: 3 Review of Systems Review of Systems All systems reviewed & are unremarkable except as noted in HPI and below Constitutional Denies chills and Denies fever(s) ENT Denies change in voice Cardiovascular Denies chest pain Gastrointestinal Denies abdominal pain, Denies nausea and Denies vomiting Genitourinary Denies dysuria Musculoskeletal Denies joint swelling Integumentary/Breasts Denies rash PFSH Family History Mother Diabetes Alcohol abuse Breast cancer Bipolar 1 disorder Father Alcohol abuse Heart disease COPD (chronic obstructive pulmonary disease) Medical History Pneumonia affecting (Acute) Anxiety (Chronic) Depression (Chronic) Social History adopted: No foster care: No number of children: 2 current occupational status: employed current occupation: [employer] pets and animals: Yes (2 dogs) Smoking/Tobacco Use Status: Current every day alcohol intake: never seatbelt use: always helmet use: Yes drive intox or ride w/ intox 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 to check) working smoke detector in home: Yes fire extinguisher in home: Yes carbon monox detector in home: Yes firearms in home: No victim of physical abuse: No victim of emotional abuse: No victim of sexual abuse: No Surgical History H/O breast biopsy (Acute) Excision, Pilonidal Cyst Exam Const General: no acute distress Orientation: alert HENMT Head: normal to inspection Ears: external ears normal General nose exam: external nose normal Mouth: moist mucous membranes Eyes General: appearance normal, both eyes and all related structures Neck Neck: normal visual inspection Resp Effort & Inspection: normal respiratory effort and able to speak in complete sentences Cardio Jugular venous pressure: no JVD Rate: tachycardic Rhythm: regular rhythm Skin General skin exam: no rashes or lesions noted Neuro General: alert and oriented x3 Extrem General: normal to inspection Psych Mental Status: mental status grossly normal
--- NOTE | 2018-02-25 08:34 | ED.GENADUL_ITS ---
Discharge Plan Disposition Patient Disposition: HOME Condition: Good Discharge Details Chief Complaint: Palpitatns Clinical Impression: Anemia requiring transfusions, Palpitations, Pneumonia Primary Care Provider: Marlene Linton V ED Provider: Sj Mclean Home Meds and New Rx's Prescriptions: New levofloxacin 750 mg tablet 750 mg PO DAILY Qty: 6 RF: 0 Continue lansoprazole [Prevacid] 30 mg capsule,delayed release(DR/EC) 30 mg PO DAILY Qty: 30 RF: 1 PNV 903-qrnjb-jqvxr-3-fish oil [ with DHA-Folic Acid] 1 EACH tablet, chewable 1 ea PO DAILY RF: 0 ranitidine HCl 300 MG tablet 300 mg PO DAILY Qty: 60 RF: 4 albuterol sulfate 90 mcg/actuation HFA aerosol inhaler 1 puff IH Q6H PRN (Reason: shortness of breath or wheezing) Qty: 8 RF: 0 acetaminophen [Tylenol] 325 mg tablet 650 mg PO Q6H PRN (Reason: pain) Qty: 30 RF: 0 ferrous sulfate [Iron (ferrous sulfate)] 325 mg (65 mg iron) Tablet 325 mg PO DAILY RF: 0 Discharge Instructions Instructions: Anemia (ED), Pneumonia (ED) Additional Instructions: follow up with your OB provider's group next week, call for an appointment if you have worsening shortness of breath or severe chest pain/pressure return to the emergency department for reevaluation Medical Decision Making 32 yo female who denies chronic medical problems who is 6 days after having vaginal delivery who comes in with complaints of feeling her heart beating fast starting around 4am and shortness of breath for a few days. Denies fever or chest pain or pressure. She is a smoker otherwise denies alcohol or drug use. She is speaking in full sentences, HR is 100-110 in sinus rhythm on my exam with 100% spo2 on room air speaking in full sentences with clear lung sounds. Given her tachycardia and recent post , has wells that is moderate, will cta to eval for pe and pericardial effusion and also eval for anemia and monitor pt's labs show hgb of 6.7, consented pt for transfusion. Has mild leukocytosis, and CTA shows small right pleural effusion and pna per Dr. Bradley from radiology. NO PE. She remains HD stable, still has BP's systolic 140-158. Will transfuse and discuss if she needs antihypertensives with OB Spoke with Dr. Sims from OB who states if pt is less than 160 systolic no meds required. Recommended f/u with them next week. Pt remains stable, once transfusion is done will d/c with abx for pna and returnp recautions given Differential Diagnosis anemia, pe, preeclampsia, anxiety, pericardial effusion Medical Records Medical records reviewed: Yes I reviewed the patient's medical records. Imaging Data Radiologic Study: Attestation: I personally reviewed and interpreted this imaging study as follows: Imaging: CT Scan Radiologist's impression: no PE, small right pleural effusion, evidence of pneumonia Lab Data Lab results reviewed: Yes I reviewed the patient's lab results. ECG Data Attestation: I personally reviewed and interpreted this ECG (s) as follows: Prior ECG tracings: not available for review Interpretation: sinus tachycardia, rate of 106, pr 156, normal axis, no st elevations or depressions or t wave inversions HPI General Mode of arrival: ambulatory . Date/Time Provider Initiated Documentation: 02/25/18 08:21 . Limitations to Documentation: no limitations . Information obtained by: patient . History of Present Illness 32 year old F presents to the emergency department with the chief complaint of palpitations, described as moderate, with intensity rated at 5. Patient reports no radiation. Patient started experiencing this hour(s) (4) and it has been constant. No relieving factors improve symptom(s), No exacerbating factors reported . Patient notes shortness of breath. Patient did receive the following treatments prior to arrival, none Related Data Home Medications Medication Instructions Recorded Confirmed PNV 154-jlbrf-txzah-3-fish oil 1 ea PO DAILY tab.chew 08/29/17 02/25/18 [ with DHA-Folic Acid] ranitidine HCl 300 mg PO DAILY #60 tab-cap 10/31/17 02/18/18 albuterol sulfate HFA 90 1 puff IH Q6H PRN #8 gm 01/06/18 02/25/18 mcg/actuation aerosol inhaler acetaminophen [Tylenol] 650 mg PO Q6H PRN #30 tab 01/14/18 02/25/18 lansoprazole 30 mg capsule,delayed 30 mg PO DAILY #30 cap 02/12/18 02/18/18 release ferrous sulfate [Iron (ferrous 325 mg PO DAILY 02/25/18 02/25/18 sulfate)] levofloxacin 750 mg PO DAILY #6 tab 02/25/18 Previous Rx's Medication Instructions Recorded ranitidine HCl 300 mg PO DAILY #60 tab-cap 10/31/17 albuterol sulfate HFA 90 1 puff IH Q6H PRN #8 gm 01/06/18 mcg/actuation aerosol inhaler acetaminophen [Tylenol] 650 mg PO Q6H PRN #30 tab 01/14/18 lansoprazole 30 mg capsule,delayed 30 mg PO DAILY #30 cap 02/12/18 release levofloxacin 750 mg PO DAILY #6 tab 02/25/18 Allergies Allergy/AdvReac Type Severity Reaction Status Date / Time No Known Drug Allergies Allergy Unverified 02/25/18 08:32 General JETT: 3 Review of Systems Review of Systems All systems reviewed & are unremarkable except as noted in HPI and below Constitutional Denies chills and Denies fever(s) ENT Denies change in voice Cardiovascular Denies chest pain Gastrointestinal Denies abdominal pain, Denies nausea and Denies vomiting Genitourinary Denies dysuria Musculoskeletal Denies joint swelling Integumentary/Breasts Denies rash PFSH Family History Mother Diabetes Alcohol abuse Breast cancer Bipolar 1 disorder Father Alcohol abuse Heart disease COPD (chronic obstructive pulmonary disease) Medical History Pneumonia affecting (Acute) Anxiety (Chronic) Depression (Chronic) Social History adopted: No foster care: No number of children: 2 current occupational status: employed current occupation: [employer] pets and animals: Yes (2 dogs) Smoking/Tobacco Use Status: Current every day alcohol intake: never seatbelt use: always helmet use: Yes drive intox or ride w/ intox 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 to check) working smoke detector in home: Yes fire extinguisher in home: Yes carbon monox detector in home: Yes firearms in home: No victim of physical abuse: No victim of emotional abuse: No victim of sexual abuse: No Surgical History H/O breast biopsy (Acute) Excision, Pilonidal Cyst Exam Const General: no acute distress Orientation: alert HENMT Head: normal to inspection Ears: external ears normal General nose exam: external nose normal Mouth: moist mucous membranes Eyes General: appearance normal, both eyes and all related structures Neck Neck: normal visual inspection Resp Effort & Inspection: normal respiratory effort and able to speak in complete sentences Cardio Jugular venous pressure: no JVD Rate: tachycardic Rhythm: regular rhythm Skin General skin exam: no rashes or lesions noted Neuro General: alert and oriented x3 Extrem General: normal to inspection Psych Mental Status: mental status grossly normal
[2018-02-25] MEDS: Acetaminophen 500 MG TAB 1000 MG PO (08:47)
[2018-02-25] MEDS: Normal Saline 1,000 ML 1000 ML IV (08:51)
[2018-02-25 08:53] LABS: Abs Immature Grans 0.27 k/cumm (0.0-0.09); Absolute Basophil Count 0.06 k/cumm (0.0-0.2); Absolute Lymphocyte Count 1.48 k/cumm (1.2-3.4); Absolute Neutrophil Count 11.83 k/cumm (1.2-6.7); Basophils % 0.4; Eosinophils % 0.6; Immature Grans % 1.9; Lymphocytes % 10.2; Mean Corp. HGB Concentration 32.4 g/dL (32.0-36.0); Mean Corpuscular Hemoglobin 28.9 pg (27.0-33.0); Mean Corpuscular Volume 89.2 fL (80-95); Mean Platelet Volume 8.9 fL (8.0-11.0); Monocytes % 5.2; Neutrophils % 81.7; Platelet Count 587 x1000/uL (130-400); RBC 2.32 m/cumm (4.00-5.20); RBC Distribution Width 12.8 % (11.7-14.6); White Blood Cell Count 14.48 k/cumm (4.4-10.8)
[2018-02-25 09:01] LABS: Absolute Eosinophil Count 0.09 k/cumm (0.0-0.7); Absolute Monocyte Count 0.75 k/cumm (0.11-0.7)
[2018-02-25 09:05] LABS: HCT 20.7 % (36.0-46.0); HGB 6.7 g/dL (12.0-15.5)
[2018-02-25 09:13] LABS: ALT 28 U/L (12-78); AST 21 U/L (15-37); Albumin 2.3 g/dL (3.4-5.0); Alkaline Phosphatase 171 U/L (46-116); Anion Gap 9.9 mmol/L (3-11); BUN 13 mg/dL (7-18); Bilirubin, Total 0.2 mg/dL (0.2-1.0); CO2 22.1 mmol/L (21.0-32.0); CREATININE 0.63 mg/dL (0.55-1.02); Calcium 8.2 mg/dL (8.5-10.1); Chloride 108 mmol/L (98-107); Glucose 101 mg/dL (70-100); Magnesium 1.7 mg/dL (1.8-2.4); NT-proBNP 834 pg/mL; Potassium 4.2 mmol/L (3.5-5.1); Sodium 140 mmol/L (136-145); Total Protein 6.4 g/dL (6.4-8.2)
[2018-02-25 09:14] LABS: PTT Activated 22.5 sec (21.0-31.4); Prothrombin Time 9.4 sec (9.3-10.8); Troponin I < 0.02 ng/mL (0.00-0.06)
[2018-02-25 09:14] LABS: Bilirubin Negative (Negative); Blood Moderate (Negative); Clarity Clear; Glucose Negative (Negative); Ketones Negative (Negative); Leukocyte Esterase Trace (Negative); Nitrite Negative (Negative); Specific Gravity 1.015 (1.005-1.025); Urobilinogen 0.2 EU/dL (Up TO 0.2); pH 7.5 (5-8)
[2018-02-25 09:23] LABS: Bacteria Rare HPF (Negative); C & S Indicated? Yes; Casts Negative LPF (Negative); Crystals Negative HPF (Negative); Epithelial Cells Rare HPF (Negative); Mucus Negative (Negative); Other Cells Rare Renal (Negative)
[2018-02-25] MEDS: Omnipaque 350 MG/ML 100 ML BTL IJ (09:54)
--- NOTE | 2018-02-25 10:15 | DI.CT_ITS ---
SYMPTOM/DIAGNOSIS: SOB, PALPITATIONS, TACHYCARDIA PE CT: CT angiography was performed with multi slice acquisition and multi planar and 3D reconstruction. The study was conducted according to the usual protocol with intravenous administration of 100.3 cc of contrast material. The pulmonary arterial system is well opacified. No emboli are seen. There is a small right and even smaller left pleural effusion. There are small areas of infiltration in the right lung. There is no mass. There is no evidence of hilar or mediastinal adenopathy. The heart is within normal limits in size. There is no evidence of RV strain. No evidence of an aortic aneurysm or dissection. No acute bony abnormality seen. SUMMARY: No evidence of pulmonary emboli. The findings likely representing an acute pneumonitis.
[2018-02-25 10:24] LABS: Bilirubin, Direct 0.07 mg/dL (0.00-0.20)
[2018-02-25] MEDS: LEVOFLOXACIN 500 MG, LEVOFLOXACIN 250 MG 750 MG PO (11:10)
== END 2018-02-25 12:59 | disposition home or self-care (01) ==
PROVIDERS: Emergency Provider Emergency Medicine; PCP Family Medicine
DX: D74.9 Methemoglobinemia, unspecified (principal); R00.2 Palpitations; J18.9 Pneumonia, unspecified organism; R03.0 Elevated blood-pressure reading, without diagnosis of hypertension; F17.210 Nicotine dependence, cigarettes, uncomplicated
CPT/HCPCS: 36415; 36430; 71275; 80053; 80076; 86850; 86900; 86901; 86920; 93005; 96360; 99285; 81003; 81015; 82248; 83735; 83880; 84484; 85025; 85610; 85730; 87086; 93010; J3490; P9016

== ENCOUNTER 2018-04-05 09:22 | Outpatient (CLI) | payer MEDICAID, SELFPAY | END 2018-04-05 09:42 | PROVIDERS: PCP Family Medicine; Visit Provider Obstetrics & Gynecology Gynecology | DX: F41.9 Anxiety disorder, unspecified (principal); Z39.2 Encounter for routine postpartum follow-up | CPT/HCPCS: 36415; 84443 ==

== ENCOUNTER 2018-06-09 13:52 | Outpatient (REF) | payer MEDICAID, SELFPAY ==
--- NOTE | 2018-06-09 13:20 | PAPFT_PTH ---
PATIENT: Donna Julian LOC: [facility] U#:[id number] AGE/SX: 33/F ROOM: RE06/09/[address]: Leticia Parkinson : 1985 BED: DIS: 06/09/2018 SPEC #: [id number] RECD: 06/09/18 18:04 STATUS: TAMRA CASTILLO #: [id number] JAMAL: 06/09/18 13:[address]: Leticia Parkinson DEPT: [facility] Cytology RECD BY: Debi Ramirez ENTERED: 06/09/18 18:05 SP TYPE: PAPFT OTHR DR: Marlene Lniton V Tissues: 1 - CX/ENDOCX FOR PAP SMEARS Procedures: PAP THIN PREP/UVM Screening Comments: [id number] (UNSATISFACTORY FOR EVALUATION)
== END 2018-06-09 14:12 ==
LOC: LBN 13:52
PROVIDERS: PCP Family Medicine; Visit Provider Obstetrics & Gynecology Gynecology
DX: Z12.4 Encounter for screening for malignant neoplasm of cervix (principal); Z11.51 Encounter for screening for human papillomavirus (HPV)
CPT/HCPCS: 88142; 87624

== ENCOUNTER 2018-07-07 11:13 | Outpatient (REF) | payer MEDICAID, SELFPAY ==
--- NOTE | 2018-07-07 09:40 | PAPFT_PTH ---
PATIENT: Donna Julian LOC: [facility] U#:[id number] AGE/SX: 33/F ROOM: RE07/07/[address]: Leticia Parkinson : 1985 BED: DIS: 07/07/2018 SPEC #: [id number] RECD: 07/07/18 13:08 STATUS: TAMRA CASTILLO #: [id number] JAMAL: 07/07/18 09:[address]: Leticia Parkinson DEPT: [facility] Cytology RECD BY: Debi Ramirez ENTERED: 07/07/18 13:08 SP TYPE: PAPFT OTHR DR: Marlene Linton V Tissues: 1 - CX/ENDOCX FOR PAP SMEARS Procedures: PAP THIN PREP/UVM Screening HPV DNA PROBE Comments: [id number]
== END 2018-07-07 11:33 ==
LOC: LBN 11:13
PROVIDERS: PCP Family Medicine; Visit Provider Obstetrics & Gynecology Gynecology
DX: Z12.4 Encounter for screening for malignant neoplasm of cervix (principal); Z11.51 Encounter for screening for human papillomavirus (HPV)
CPT/HCPCS: 88142; 87624

== ENCOUNTER 2018-12-30 11:01 | Outpatient (CLI) | payer MEDICAID, SELFPAY ==
[2018-12-30 11:29] LABS: Abs Immature Grans 0.02 k/cumm (0.0-0.09); Absolute Basophil Count 0.04 k/cumm (0.0-0.2); Absolute Eosinophil Count 0.16 k/cumm (0.0-0.7); Absolute Lymphocyte Count 2.46 k/cumm (1.2-3.4); Absolute Monocyte Count 0.61 k/cumm (0.11-0.7); Absolute Neutrophil Count 5.33 k/cumm (1.2-6.7); Basophils % 0.5; Eosinophils % 1.9; HCT 38.8 % (36.0-46.0); Immature Grans % 0.2; Lymphocytes % 28.5; Mean Corp. HGB Concentration 33.5 g/dL (32.0-36.0); Mean Corpuscular Volume 83.6 fL (80-95); Mean Platelet Volume 9.5 fL (8.0-11.0); Monocytes % 7.1; Neutrophils % 61.8; Platelet Count 360 x1000/uL (130-400); RBC 4.64 m/cumm (4.00-5.20); RBC Distribution Width 14.4 % (11.7-14.6); White Blood Cell Count 8.62 k/cumm (4.4-10.8)
[2018-12-30 12:29] LABS: Iron 200 ug/dL (50-175); Total Iron Binding Capacity 310 ug/dL (250-450); Transferrin Sat 65 % (15-50)
[2018-12-30 12:32] LABS: Ferritin 21 ng/mL (8-388)
== END 2018-12-30 11:21 ==
PROVIDERS: PCP Physician Assistant Medical; Visit Provider Physician Assistant Medical
DX: D50.9 Iron deficiency anemia, unspecified (principal)
CPT/HCPCS: 36415; 82728; 83540; 83550; 85025

== ENCOUNTER 2019-01-05 15:30 | Outpatient (REF) | payer MEDICAID, SELFPAY ==
[2019-01-05 22:01] LABS: TSH (W/Ref FT4) 1.03 uIU/mL (0.36-3.74)
== END 2019-01-05 15:50 ==
LOC: NCHCN 15:30
PROVIDERS: PCP Physician Assistant Medical; Visit Provider Physician Assistant Medical
DX: O92.6 Galactorrhea (principal)
CPT/HCPCS: 84146; 84443

== ENCOUNTER 2019-03-04 12:02 | Outpatient (REF) | payer MEDICAID, SELFPAY ==
[2019-03-04 16:20] LABS: ALT 29 U/L (14-59); AST 19 U/L (15-37); Albumin 3.7 g/dL (3.4-5.0); Alkaline Phosphatase 105 U/L (46-116); Anion Gap 9.4 mmol/L (3-11); BUN 10 mg/dL (7-18); Bilirubin, Total 0.3 mg/dL (0.2-1.0); C-Reactive Protein 0.62 mg/dL (0.0-0.3); CO2 24.6 mmol/L (21.0-32.0); CREATININE 0.76 mg/dL (0.55-1.02); Calcium 8.9 mg/dL (8.5-10.1); Chloride 106 mmol/L (98-107); Glucose 103 mg/dL (74-106); Potassium 4.6 mmol/L (3.5-5.1); Sodium 140 mmol/L (136-145); Total Protein 6.9 g/dL (6.4-8.2)
[2019-03-04 16:36] LABS: ESR 11 mm/hr (0-20)
[2019-03-07 22:01] LABS: Anaplasma phagocytophilum Negative (Negative); B. miyamotoi PCR Negative (Negative); Babesia divergens/MO-1 Negative (Negative); Babesia duncani Negative (Negative); Babesia microti Negative (Negative); Ehrlichia chaffeensis Negative (Negative); Ehrlichia ewingii/canis Negative (Negative); Ehrlichia muris eauclairensis Negative (Negative)
[2019-03-09 10:53] LABS: Lyme Ab w Rflx to Lyme Confirm Negative (Negative)
[2019-03-09 11:11] LABS: Rheumatoid Factor <7.5 IU/mL (<12.5)
[2019-03-09 14:43] LABS: ANA Interpretation Negative (Negative)
== END 2019-03-04 12:22 ==
LOC: NCHCN 12:02
PROVIDERS: PCP Physician Assistant Medical; Visit Provider Physician Assistant Medical
DX: R60.9 Edema, unspecified (principal)
CPT/HCPCS: 80053; 85652; 87798; 86038; 86140; 86431; 86618

== ENCOUNTER 2019-07-06 15:54 | Outpatient (REF) | payer MEDICAID, SELFPAY | END 2019-07-06 16:14 | LOC: NCHCN 15:54 | PROVIDERS: PCP Physician Assistant Medical; Visit Provider Physician Assistant Medical | DX: J02.9 Acute pharyngitis, unspecified (principal) | CPT/HCPCS: 87081 ==

== ENCOUNTER 2023-05-21 15:16 | Outpatient (REF) | payer MEDICAID, SELFPAY ==
[2023-05-21 19:29] LABS: ALT 29 U/L (14-59); AST 15 U/L (15-37); Albumin 3.9 g/dL (3.4-5.0); Alkaline Phosphatase 72 U/L (46-116); Anion Gap 6.3 mmol/L (3-11); BUN 14 mg/dL (7-18); Bilirubin, Total 0.2 mg/dL (0.2-1.0); CO2 29.7 mmol/L (21.0-32.0); CREATININE 0.7 mg/dL (0.55-1.02); Calcium 9.1 mg/dL (8.5-10.1); Calculated LDL 96 mg/dL (<100); Chloride 106 mmol/L (98-107); Cholesterol 153 mg/dL (<200); Estimated GFR 112.05 (mL/min/1.73m2); Glucose 62 mg/dL (74-106); HDL Cholesterol 48 mg/dL (40-60); Potassium 3.6 mmol/L (3.5-5.1); Sodium 142 mmol/L (136-145); TSH 1.23 uIU/mL (0.36-3.74); Total Protein 7.2 g/dL (6.4-8.2); Triglyceride 49 mg/dL (<150)
== END 2023-05-21 15:17 | disposition home or self-care (01) ==
LOC: NCHCN 15:16
PROVIDERS: PCP Physician Assistant Medical; Visit Provider Physician Assistant Medical
DX: Z00.00 Encounter for general adult medical examination without abnormal findings (principal)
CPT/HCPCS: 80053; 80061; 84443

== ENCOUNTER 2024-09-01 14:00 | Outpatient (REF) | payer MEDICAID, SELFPAY ==
[2024-09-01 16:47] LABS: TSH (W/Ref FT4) 0.97 uIU/mL (0.36-3.74); Vitamin D 25 Total 27 ng/mL (30-100)
== END 2024-09-01 14:01 | disposition home or self-care (01) ==
LOC: NCHCN 14:00
PROVIDERS: PCP Physician Assistant Medical; Visit Provider Physician Assistant Medical
DX: F41.9 Anxiety disorder, unspecified (principal)
CPT/HCPCS: 82306; 84443